=== PATIENT | female | born 1990 | race Caucasian/White ===

== ENCOUNTER 2021-03-31 11:26 | Outpatient (REF) | payer OTHER, SELFPAY ==
--- NOTE | ~2021-03-31 | US_ITS ---
EXAMINATION: US PELVIS CLINICAL INFORMATION: Excessive and irregular menses. Abnormal uterine bleeding. LMP 02/17/2021. COMPARISON: None TECHNIQUE: Ultrasound of the pelvis is performed using both transabdominal and transvaginal transducers along with Doppler. Transvaginal imaging is performed due to inadequate visualization transabdominally. FINDINGS: Uterus: The uterus is anteverted and measures 9.8 x 4.0 x 4.5 cm. There are incidentally noted nabothian cysts in the cervix. The double wall endometrial thickness is 0.5 mm. The uterus is smooth in contour and has normal myometrial echogenicity. No visible fibroid. Adnexa: Both ovaries are visualized. There is normal color flow to the adnexa. There is no ovarian torsion. There is no pelvic ascites or fluid collection. Right ovary measures 3.3 x 2.0 x 1.9 cm. 7 mL volume. No adnexal mass. Left ovary measures 3.3 x 2.1 x 2.4 cm. 8.5 mL volume. There is a dilated fluid-filled tubular structure adjacent the left ovary consistent with a hydrosalpinx. No adnexal mass. US/US pelvic and transvaginal IMPRESSION: Likely left hydrosalpinx. Normal endometrial thickness.
== END 2021-03-31 11:27 | disposition home or self-care (01) ==
LOC: HO.US 11:26
PROVIDERS: Visit Provider Advanced Practice Midwife
DX: N92.1 Excessive and frequent menstruation with irregular cycle (principal)
CPT/HCPCS: 76830; 76856

== ENCOUNTER 2025-04-07 18:22 | Outpatient (REF) | payer OTHER, SELFPAY ==
--- OUTSIDE RECORDS SUMMARY | 2025-04-07 13:00 | XMS_ITS | Encounter Summary ---
Author Organization [employer] Address [address] [place] [address] Care Team Providers Care Agronomy Supervisor Name Role Phone Anny Prado Primary Care Provider [phone] Reason for Referral * Consultation (Routine) - Authorized Specialty Diagnoses / Procedures Referred By Jag tovar Referred To Contact Behavioral Health Diagnoses Depression with anxiety Anny Prado ANP [address] [place] [address] Phone: tel: fax: Referral ID Status Reason Start Date Expiration Date Visits Requested Visits Authorized [id number] Authorized Specialty Services Required 04/07/2025 04/07/2026 1 1 Reason for Visit * Reason Comments Follow-up Encounter Details Date Type Department Care Team (Latest Contact Info) Description 04/07/2025 1:00 PM EDT Office Visit [facility] [address] [place], [place] [phone] Anny Prado ANP [address] [place] [address] Attention deficit hyperactivity disorder (ADHD), unspecified ADHD type (Primary Dx); PCOS (polycystic ovarian syndrome); Class 2 obesity with body mass index (BMI) of 36.0 to 36.9 in adult, unspecified obesity type, unspecified whether serious comorbidity present; Depression with anxiety; Rash; Routine screening for STI (sexually transmitted infection); Homelessness Social History Tobacco Use Types Packs/Day Years Used Date Smoking Tobacco: Never Smokeless Tobacco: Never Tobacco Cessation:Counseling Given: Not Answered Depression Answer Date Recorded Patient Health Questionnaire-9 Score 16 07/18/2024 Patient Health Questionnaire-9 Score 16 07/18/2024 Last PHQ-9: Questionnaire Data Not on file 1 09/18/2023 Housing Stability Answer Date Recorded What is your housing situation today? I do not have housing (Staying with others, in a hotel, in a senior care, living outside on the street, on a beach, in a car, or in a park 04/07/[address] you li ve. Do you have problems with any of the following? Pests such as bugs, ants, or mice 04/07/2025 Food Insecurity Answer Date Recorded Within the past 12 months, y ou worried that your food would run out before you got money to buy more: Often true 04/07/2025 Within the past 12 months,th e food you bought just didn't last and you didn't have enough money to get more: Often true Transportation Answer Date Recorded In the past 12 months, has l ack of transportation kept you from medical appts, meetings, work or from getting things needed for daily living? No 04/07/2025 Utilities Answer Date Recorded In the past 12 months, has t he electric, gas, oil or water company threatened to shut off services in your home? No 05/07/2024 Depression Answer Date Recorded Patient Health Questionnaire-2 Score 6 07/18/2024 Internet Access Answer Date Recorded Internet Access Q1 No 04/07/2025 Internet Access Q2 Not on file 04/07/2025 Comments Unknown Sex and Gender Information Value Date Recorded Sex Assigned at Female 05/22/2022 10:20 AM EDT Legal Sex Female 10:20 AM EDT Gender Identity Female 05/22/2022 10:20 AM EDT Sexual Orientation Straight 05/22/2022 10 :20 AM EDT documented as of this encounter Last Filed Vital Signs Vital Sign Reading Time Taken Comments Blood Pressure 108/68 04/07/2025 1:03 PM EDT Pulse 96 04/07/2025 1:03 PM EDT Temperature 37.1 C (98.7 F) 04/07/2025 1:03 PM EDT Respiratory Rate 20 04/07/2025 1:03 PM EDT Oxygen Saturation - - Inhaled Oxygen Concentration - - Weight 107 kg (236 lb) 04/07/2025 1:03 PM EDT Height 170.2 cm (5' 7 ) 04/07/2025 1:03 PM EDT Body Mass Index 36.96 04/07/2025 1:03 PM EDT documented in this encounter Progress Notes * PETRA Brooks - 04/07/2025 1:00 PM EDT Subjective Patient ID: Jessica Blanco is a 35 y.o. female who presents for Follow-up. HPI PMH anemia, PCOS, h/o seizure d/o (no meds and no recent seizure) Works at [employer]. Non-smoker, occasional etoh. Had miscarriage in January 2025, also found to have PID, +trichomonas, treated as was partner Does not want to be at present BCM condoms Adderall is helping w/ attn and anxiety, depression, feels more calm, able to focus. Now homeless though b/c [employer] she was working at [employer]. Staying in car at BF's mom's house. Is talking to [facility] about this and trying to get connected w/ a high school social science teacher, has difficulty doing the paperwork she needs to d/t develop disability. Would like to re-trial zepbound Had for 1 mo Has lost #30 lb since Jun - suspect this is d/t poor access to food at present. Last pap 2019, pt says gets at [facility] but records in [facility] do not reflect this. Has infertility med note noting pap 2020 NIL, but no actual record of this in pathology or lab results in [facility]. Here today for follow-up/weight check. Tolerated zepbound (tirzepatide) previously, denied side effects. BMI Readings from Last 3 Encounters: 04/07/25 36.96 kg/m?? 12/12/24 41.35 kg/m?? 07/18/24 41.35 kg/m?? Wt Readings from Last 3 Encounters: 04/07/25 236 lb (107 kg) 12/12/24 264 lb (120 kg) 07/18/24 264 lb (120 kg) had improvement in energy and menses regularity with weight loss medication use. Non-smoker Review of Systems Constitutional: Negative for chills and fever. HENT: Negative for sore throat. Respiratory: Negative for cough and shortness of breath. Cardiovascular: Negative for chest pain. Gastrointestinal: Negative for constipation and diarrhea. Endocrine: Negative for polydipsia, polyphagia and polyuria. Genitourinary: Negative for dysuria. Musculoskeletal: Negative for arthralgias. Neurological: Negative for weakness. Psychiatric/Behavioral: Negative for sleep disturbance. The patient is nervous/anxious. Objective BP 108/68 (BP Location: Left arm, Patient Position: Sitting, BP Cuff Size: Large adult) Pulse 96 Temp 98.7 ??F (37.1 ??C) (Oral) Resp 20 Ht 5' 7 (1.702 m) Wt 236 lb (107 kg) BMI 36.96 kg/m?? Physical Exam Constitutional: General: She is not in acute distress. Appearance: Normal appearance. She is not ill-appearing. HENT: Head: Normocephalic and atraumatic. Eyes: General: No scleral icterus. Extraocular Movements: Extraocular movements intact. Pupils: Pupils are equal, round, and reactive to light. Cardiovascular: Rate and Rhythm: Normal rate. Pulmonary: Effort: Pulmonary effort is normal. No accessory muscle usage or respiratory distress. Neurological: Mental Status: She is alert and oriented to person, place, and time. Psychiatric: Mood and Affect: Mood normal. Behavior: Behavior normal. Assessment/Plan Diagnoses and all orders for this visit: Attention deficit hyperactivity disorder (ADHD), unspecified ADHD type Doing well w/ adderall XR 15mg daily PCOS (polycystic ovarian syndrome) Having monthly menses Class 2 obesity with body mass index (BMI) of 36.0 to 36.9 in adult, unspecified obesity type, unspecified whether serious comorbidity present Reviewed GLP1 not recommended w , pt does not want at present, using condoms - Tirzepatide-Weight Management (Zepbound) 2.5 MG/0.5ML solution auto-injector; Inject 0.5 mL (2.5 mg) under the skin 1 (one) time per week. - TSH W/Reflex to FT4; Future Depression with anxiety BH referral to be placed, pt on waiting list but has been on list for at least 1 yr. Rash - triamcinolone (Kenalog) 0.1 % cream; Apply topically 2 times daily. To affected areas Routine screening for STI (sexually transmitted infection) Re-test for STI s/p PID tx 02/01/25 w/ +trich To be scheduled w/ CNM for pap - prefers female provider and we think last pap 2019. - Chlamydia/N. Gonorrhoeae RNA, TMA, Vagina - HIV-1/2 Antigen and Antibodies, Fourth Generation, with Reflexes; Future - Syphilis Screen; Future - Bacterial Vaginosis, Yeast and Trich; Future Homelessness [facility] referral placed Other orders - HPV 9-valent (Gardasil-9) suspension prefilled syringe vaccine prefilled syringe; Inject 0.5 mL into the muscle 1 (one) time for 1 dose. Repeat as directed BMI Readings from Last 3 Encounters: 04/07/25 36.96 kg/m?? 12/12/24 41.35 kg/m?? 07/18/24 41.35 kg/m?? Wt Readings from Last 3 Encounters: 04/07/25 236 lb (107 kg) 12/12/24 264 lb (120 kg) 07/18/24 264 lb (120 kg) documented in this encounter Plan of Treatment Upcoming Encounters Date Type Department Care Team (Late st Contact Info) Description 05/07/2025 2:45 PM EDT Procedure Visit [facility] [address] [place], [place] [phone] Joanne Michele CNM [address] [place] [address] Scheduled Orders Name Type Priority Associated Diagnoses Orde r Schedule Chlamydia/N. Gonorrhoeae RNA, TMA, Vagina Microbiology Routine Routine screening for STI (sexually transmitted infection) Ordered: 04/07/2025 HIV-1/2 Antigen and Antibodies, Fourth Generation, with Reflexes Lab Routine Routine screening for STI (sexually transmitted infection) Expected: 04/07/2025 (Approximate), Expires: 04/07/2026 Syphilis Screen Lab Routine Routine screening for STI (sexually transmitted infection) Expected: 04/07/2025 (Approximate), Expires: 04/07/2026 Bacterial Vaginosis, Yeast and Trich Microbiology Routine Routine screening for STI (sexually transmitted infection) Expected: 04/07/2025 (Approximate), Expires: 04/07/2026 TSH W/Reflex to FT4 Lab Routine Class 2 obesity with body mass index (BMI) of 36.0 to 36.9 in adult, unspecified obesity type, unspecified whether serious comorbidity present Expected: 04/07/2025 (Approximate), Expires: 04/07/2026 Scheduled Referrals Name Type Priority Associated Diagnoses Order Schedule Referral to Behavioral Health Outpatient Referral Routine Depression with anxiety Expected: 04/07/2025 (Approximate), Expires: 10/05/2026 documented as of this encounter Visit Diagnoses Diagnosis Attention deficit hyperactivity disorder (ADHD), unspecified ADHD type- Primary PCOS (polycystic ovarian syndrome) Polycystic ovaries Class 2 obesity with body mass index (BMI) of 36.0 to 36.9 in adult, unspecified obesity type, unspecified whether serious comorbidity present Depression with anxiety Dysthymic disorder Rash Rash and other nonspecific skin eruption Routine screening for STI (sexually transmitted infection) Screening examination for venereal disease Homelessness Lack of housing documented in this encounter Additional Health Concerns Assessment Noted Time PHQ-9 Depression Total Score: 16 07/18/ 024 2:13 PM EST documented as of this encounter Care Teams Agronomy Supervisor Relationship Specialty Start Date End Date Anny Prado ANP [address] [place] [id number] PCP - General Family Medicine 06/03/20 documented as of this encounter
--- OUTSIDE RECORDS SUMMARY | 2025-04-07 19:18 | XMS_ITS | Clinical Summary ---
Author Organization [facility] Address [address] [place] [address] Phone Care Team Providers Care Wellness Coach Name Role Phone Physician, Pcp Unknown Primary Care Provider Michelle vailable Allergies No known active allergies Medications No known medications Active Problems Comments Yes No known active problems Encounters Date Type Department Care Team Description 02/01/2025 12:24 PM EDT - 02/01/2025 5:01 PM EDT Emergency [facility] Emergency [address] [place] [id number] Ramu Mariscal MD Miscarriage (Primary Dx); Pelvic pain; Trichomonal vaginitis; PID (acute pelvic inflammatory disease) Discharge Disposition: Home or Self Care 01/30/2025 4:41 PM EDT - 01/30/2025 6:29 PM EDT Emergency [facility] Emergency [address] [place] [phone] Vaginal bleeding in (Primary Dx) Discharge Disposition: Home or Self Care from Last 3 Months Surgical History Surgery Date Site/Laterality Comments EYE SURGERY Medical History Medical History Date Comments Seizures ([facility] V24, [facility] V28) Anemia Social History Tobacco Use Types Packs/Day Years Used Date Smoking Tobacco: Never Smokeless Tobacco: Never Tobacco Cessation:Counseling Given: Not Answered Alcohol Use Standard Drinks/Week Comments Never 0 (1 standard drink = 0.6 oz pur e alcohol) Comments Yes Sex and Gender Information Value Date Recorded Sex Assigned at Female 06/04/2024 2:08 PM EST Legal Sex Female 4:23 PM EST Gender Identity Female 06/04/2024 2:08 PM EST Sexual Orientation Straight 06/04/2024 2: 08 PM EST Obstetrics History Para Term AB IAB SAB Ectopic Multiple Livin g Live Births 1 Date Outcome GA Total Labor Labor/2nd/3rd Weight Sex Type Anes PTL Kathy A1 A5 Name Clin Current Last Filed Vital Signs Vital Sign Reading Time Taken Comments Blood Pressure 139/96 02/01/2025 12:30 PM EDT Pulse 70 02/01/2025 12:30 PM EDT Temperature 37.4 C (99.3 F) 02/01/2025 12:30 PM EDT Respiratory Rate 16 02/01/2025 12:30 PM EDT Oxygen Saturation 100% 02/01/2025 12:30 PM EDT Inhaled Oxygen Concentration - - Weight 109 kg (240 lb) 02/01/2025 12:30 PM EDT Height 170.2 cm (5' 7 ) 02/01/2025 12:30 PM EDT Body Mass Index 37.59 02/01/2025 12:30 PM EDT Plan of Treatment Health Maintenance Due Date Last Done Comments HPV Vaccines (3 - 3-dose series) 12/14/2010 09/21/2010, 08/22/2010, 09/28/2009 Cervical Cancer Screening: Pap Smear 02/17/2013 Cholesterol Screening (Lipid Panel) 06/21/2022 Hepatitis C Screening 06/21/2022 Medicare Annual Wellness Visit 06/21/2022 Social Influencers of Health Screening 06/21/2022 Depression Screening 07/23/2024 COVID-19 Vaccine ( season) 2025 Influenza Vaccine (#1) 2025 , 05/24/2023, 05/18/2022, Additional history exists DTaP,Tdap,and Td Vaccines (8 - Td or Tdap) 05/24/2033 05/24/2023, 09/22/2011, 07/30/1996, Additional history exists HIB Vaccines Completed 12/14/1993, 09/20, 1992, Additional history exists Hepatitis B Vaccines Completed 12/14/1993, 1992, 1992, Additional history exists IPV Vaccines Completed 08/09/1996, 09/20, 1992, Additional history exists HIV Screening Completed 10/27/2021 Hepatitis A Vaccines Aged Out No long er eligible based on patient's age to complete this topic Meningococcal ACWY Vaccine Aged Out N o longer eligible based on patient's age to complete this topic Meningococcal B Vaccine Aged Out No l onger eligible based on patient's age to complete this topic Pneumococcal Vaccine: Pediatrics (0 to 5 Years) and At-Risk Patients (6 to 49 Years) Aged Out No longer eligible based on patient's age to complete this topic RSV Immunization Patients Under 20 months Aged Out No longer eligible based on patient's age to complete this topic Procedures Procedure Name Priority Date/Time Associated Diagnosis Comments TISSUE EXAM Routine 02/01/2025 3:34 PM EDT CHLAMYDIA TRACHOMATIS AND NEISSERIA GONORRHOEAE PCR STAT 02/01/2025 2:55 PM EDT WET PREP, GENITAL STAT 02/01/2025 2:5 5 PM EDT DRAKE URINE CULTURE TUBE STAT 02/01/2025 2:02 PM EDT URINALYSIS WITH REFLEX MICROSCOPIC AND CULTURE STAT 02/01/2025 2:02 PM EDT URINALYSIS WITH REFLEX MICROSCOPIC AND CULTURE STAT 02/01/2025 2:02 PM EDT CULTURE URINE STAT 02/01/2025 2:02 PM EDT HCG, QUANTITATIVE STAT Add-on 02/01/2025 1:0 1 PM EDT HCG, SERUM, QUALITATIVE STAT 02/01/2025 1:01 PM EDT CBC WITH AUTO DIFFERENTIAL STAT 02/01/2025 1:01 PM EDT LIPASE STAT 02/01/2025 1:01 PM EDT COMPREHENSIVE METABOLIC PANEL STAT 02/01/2025 1:01 PM EDT CBC AND DIFFERENTIAL STAT 02/01/2025 1:01 PM EDT US OB LIMITED 1+ FETUSES STAT 01/30/2025 4:11 PM EDT US OB TRANSVAGINAL STAT 01/30/2025 3: 45 PM EDT HCG, QUANTITATIVE STAT Add-on 01/30/2025 2:0 6 PM EDT CBC WITH AUTO DIFFERENTIAL STAT 01/30/2025 2:06 PM EDT HCG, SERUM, QUALITATIVE STAT 01/30/2025 2:06 PM EDT COMPREHENSIVE METABOLIC PANEL STAT 01/30/2025 2:06 PM EDT CBC AND DIFFERENTIAL STAT 01/30/2025 2:06 PM EDT DRAKE URINE CULTURE TUBE STAT 01/30/2025 2:00 PM EDT URINALYSIS WITH REFLEX MICROSCOPIC AND CULTURE STAT 01/30/2025 2:00 PM EDT URINALYSIS WITH REFLEX MICROSCOPIC AND CULTURE STAT 01/30/2025 2:00 PM EDT CULTURE URINE STAT 01/30/2025 2:00 PM EDT POC , URINE DIAGNOSTIC STAT 01/30/2025 1:59 PM EDT from Last 3 Months Results * Tissue exam (02/01/2025 3:34 PM EDT) Final Diagnosis Products of conception: Inflamed decidua No villous, trophoblastic, or embryonic tissue identified 02/03/2025 7:52 AM EDT [facility] Clinical Information Gestational age on date of collection: 3-4 weeks determined by LMP (01/02/2025) Cytogenetic study 02/03/2025 7:52 AM EDT [facility] Gross Description A. Uterus, POC: Labeled uterus . Received fresh, and blood-tinged saline, is a 1.0 x 0.4 x 0.15 cm aggregate of blood/blood clot which contains a soft, preciado-red 0.3 cm in greatest diameter possible tissue fragment. Chorionic villi and parts are absent. The specimen is wrapped in paper and submitted in toto in one cassette, multiple pieces. Note: No tissue is sent for cytogenetics, as no villi are apparent grossly. TS 02/03/2025 7:52 AM EDT [facility] Disclaimer Unless otherwise specified, all tissue is 10% NB formalin fixed and paraffin embedded. 02/03/2025 7:52 AM EDT [facility] Tissue Uterine structure / Unknown Non-blood Collection / Unknown 02/01/2025 3:34 PM EDT 02/02/2025 7:41 AM EDT Miguel Angel MARTINEZ LAB PATHOLOGY ORDERAB LES Final Result [facility] [address] [place] [address], [place] [phone] * (ABNORMAL) Chlamydia trachomatis and Neisseria gonorrhoeae molecular study (02/01/2025 2:55 PM EDT) Neisseria gonorrhoeae PCR Negative Negative LAB MOLECULAR DIAGNOSTICS METHOD 02/03/2025 9:58 AM EDT [facility] Chlamydia trachomatis PCR Positive(A) Negative LAB MOLECULAR DIAGNOSTICS METHOD 02/03/2025 9:58 AM EDT [facility] Swab Cervix uteri structure / Unknown Non-blood Collection / Unknown 02/01/2025 2:55 PM EDT 02/01/2025 3:27 PM EDT us Miguel Angel MARTINEZ LAB MICROBIOLOGY - GE NERAL ORDERABLES Final Result [facility] [address] [place] [address], [place] [phone] * (ABNORMAL) Wet prep, genital (02/01/2025 2:55 PM EDT) Pathologist [facility] Clue Cells, Wet Prep Negative Negative 02/01/2025 3:40 PM EDT [facility] Yeast, Wet Prep Negative Negative 02/01/2025 3:40 PM EDT [facility] Trichomonas, Wet Prep Positive(A) Negative 02/01/2025 3:40 PM EDT [facility] Swab Vaginal structure / Unknown Non-blood Collection / Unknown 02/01/2025 2:55 PM EDT 02/01/2025 3:27 PM EDT Miguel Angel Van [place] LAB MICROBIOLOGY - NERAL ORDERABLES Final Result [facility] [address] [place] [address], [place] [phone] * (ABNORMAL) Urinalysis with reflex microscopic and culture (02/01/2025 2:02 PM EDT) Only the most recent of2 resultswithin the time period is included. [facility] Specific [place] Urine 1.029 1.003 - 1.030 LAB URINALYSIS - AUTOMATED METHOD 02/01/2025 2:59 PM EDT [facility] pH, Urine 5.5 5.0 - 8.0 pH LAB URINALYSIS - AUTOMATED METHOD 02/01/2025 2:59 PM EDT [facility] Leukocytes, Urine Moderate(A) Negative LAB URINALYSIS - AUTOMATED METHOD 02/01/2025 2:59 PM EDT [facility] Nitrite, Urine Negative Negative LAB URINALYSIS - AUTOMATED METHOD 02/01/2025 2:59 PM EDT [facility] Protein, Urine 100(A) <=Trace mg/dL LAB URINALYSIS - AUTOMATED METHOD 02/01/2025 2:59 PM [facility] Glucose, Urine Negative Negative mg/dL LAB URINALYSIS - AUTOMATED METHOD 02/01/2025 2:59 PM [facility] Ketones, Urine Trace(A) Negative mg/dL LAB URINALYSIS - AUTOMATED METHOD 02/01/2025 2:59 PM [facility] Urobilinogen , Urine 1.0 0.2 - 1.0 mg/dL LAB URINALYSIS - AUTOMATED METHOD 02/01/2025 2:59 PM [facility] Bilirubin, Urine Negative Negative LAB URINALYSIS - AUTOMATED METHOD 02/01/2025 2:59 PM [facility] Blood, Urine Large(A) Negative LAB URINALYSIS - AUTOMATED METHOD 02/01/2025 2:59 PM [facility] RBC, Urine >4,000(H) 0 - 4 /HPF LAB URINALYSIS - AUTOMATED METHOD 02/01/2025 2:59 PM [facility] WBC, Urine 118.6(H) 0 - 4 /HPF LAB URINALYSIS - AUTOMATED METHOD 02/01/2025 2:59 PM [facility] Squamous Epithelial, Urine >100(H) 0 - 60 /LPF LAB URINALYSIS - AUTOMATED METHOD 02/01/2025 2:59 PM [facility] Bacteria, Urine Negative Negative /HPF LAB URINALYSIS - AUTOMATED METHOD 02/01/2025 2:59 PM [facility] Hyaline Casts, Urine 3.0 0 - 3 /LPF LAB URINALYSIS - AUTOMATED METHOD 02/01/2025 2:59 PM [facility] Trichomonas, Urine Present(A) None Seen /HPF LAB URINALYSIS - AUTOMATED METHOD 02/01/2025 2:59 PM [facility] Urine Urine specimen obtained by clean catch procedure / Unknown Non-blood Collection / Unknown 02/01/2025 2:02 PM EDT 02/01/2025 2:19 PM EDT [facility] URINE ORDERABLES Final Result Performing Organization Address City/[facility]/ZIP Co de Phone Number [facility] [address] [place] [address], [place] [phone] * Drake urine culture tube (02/01/2025 2:02 PM EDT) Only the most recent of2 resultswithin the time period is included. Extra Tube Hold for add-ons. 02/01/2025 4:01 PM EDT [facility] Comment:Auto resulted. Urine Urine specimen obtained by clean catch procedure / Unknown Non-blood Collection / Unknown 02/01/2025 2:02 PM EDT 02/01/2025 2:19 PM EDT [facility] URINE ORDERABLES Final Result Performing Organization Address [facility] de Phone Number [facility] [address] [place] [address], [place] [phone] * Culture urine (02/01/2025 2:02 PM EDT) Only the most recent of2 resultswithin the time period is included. Culture, Urine 50,000-99,000 CFU/mL Mixed urogenital naday, no uropathogens present. Suggest repeat specimen if clinically indicated. 02/02/2025 11:01 AM EDT [facility] Urine Urine specimen obtained by clean catch procedure / Unknown Non-blood Collection / Unknown 02/01/2025 2:02 PM EDT 02/01/2025 2:59 PM EDT [facility] LAB MICROBIOLOGY - GE NERAL ORDERABLES Final Result Performing Organization Address City/[facility]/ZIP Co de Phone Number [facility] [address] [place] [address], * (ABNORMAL) CBC auto differential (02/01/2025 1:01 PM EDT) Only the most recent of2 resultswithin the time period is included. [facility] Signature WBC 7.7 4.8 - 10.8 K/mcL LAB HEMETOLOGY METHOD 02/01/2025 1:18 PM EDT [facility] RBC 5.00(H) 3.80 - 4.80 M/mcL LAB HEMETOLOGY METHOD 02/01/2025 1:18 PM EDT [facility] Hemoglobin 12.0 11.5 - 16.0 g/dL LAB HEMETOLOGY METHOD 02/01/2025 1:18 PM EDT [facility] Hematocrit 38.1 35.0 - 47.0 % LAB HEMETOLOGY METHOD 02/01/2025 1:18 PM EDT [facility] MCV 77.0(L) 79.0 - 98.0 FL LAB HEMETOLOGY METHOD 02/01/2025 1:18 PM EDT [facility] MCH 24.2(L) 27.0 - 32.0 pcg LAB HEMETOLOGY METHOD 02/01/2025 1:18 PM EDT [facility] MCHC 31.5(L) 32.0 - 37.0 g/dL LAB HEMETOLOGY METHOD 02/01/2025 1:18 PM EDT [facility] RDW 15.8(H) 11.0 - 15.0 % LAB HEMETOLOGY METHOD 02/01/2025 1:18 PM EDT [facility] Platelets 348 130 - 400 K/mcL LAB HEMETOLOGY METHOD 02/01/2025 1:18 PM EDT [facility] MPV 11.1(H) 7.0 - 11.0 FL LAB HEMETOLOGY METHOD 02/01/2025 1:18 PM EDT [facility] NRBC 0.0 <1.0 % LAB HEMETOLOGY METHOD 02/01/2025 1:18 PM EDT [facility] NRBC Absolute 0.00 <0.10 K/mcL LAB HEMETOLOGY METHOD [facility]25 [facility] Neutrophils Relative 73.2 % LAB HEMETOLOGY METHOD 02/01/2025 1:18 PM EDT [facility] Lymphocytes Relative 17.8 % LAB HEMETOLOGY METHOD 02/01/2025 1:18 PM EDT [facility] Monocytes Relative 6.4 % LAB HEMETOLOGY METHOD 02/01/2025 1:18 PM [facility] Eosinophils Relative 1.8 % LAB HEMETOLOGY METHOD 02/01/2025 1:18 PM [facility] Basophils Relative 0.5 % LAB HEMETOLOGY METHOD 02/01/2025 1:18 PM [facility] Immature Granulocytes Relative 0.3 % LAB HEMETOLOGY METHOD 02/01/2025 1:18 PM [facility] Neutrophils Absolute 5.63 1.50 - 7.00 K/mcL LAB HEMETOLOGY METHOD 02/01[facility]2025 [facility] Lymphocytes Absolute 1.37 1.00 - 5.00 K/mcL LAB HEMETOLOGY METHOD 02/01/2025 1:18 PM EDT [facility] Monocytes Absolute 0.49 0.20 - 1.00 K/mcL LAB HEMETOLOGY METHOD 02/01/2025 [facility] Eosinophils Absolute 0.14 0.00 - 0.50 K/mcL LAB HEMETOLOGY METHOD 02/01/2025 1:[facility] Basophils Absolute 0.04 0.00 - 0.20 K/mcL LAB HEMETOLOGY METHOD 02/01/2025 1:18 PM EDT [facility] Immature Granulocytes Absolute 0.02 0.00 - 0.03 K/mcL LAB HEMETOLOGY METHOD 02/01/2025 1:18 PM EDT [facility] Blood Venous blood specimen / Unknown Venipuncture / Unknown 02/01/2025 1:01 PM EDT 02/01/2025 1:09 PM EDT Ramu Mariscal MD LAB BLOOD ORDERABLES Final Resu lt [facility] [address] [place] [address], [place] [phone] * hCG, serum, qualitative (02/01/2025 1:01 PM EDT) Only the most recent of2 resultswithin the time period is included. hCG Qual Negative Negative 02/01/2025 1:30 PM EDT [facility] Blood Venous blood specimen / Unknown Venipuncture / Unknown 02/01/2025 1:01 PM EDT 02/01/2025 1:09 PM EDT Bob Tinsley MD LAB BLOOD ORDERABLES Final Result Performing Organization Address City/[facility]/ZIP Co de Phone Number [facility] [address] [place] [address], [place] [phone] * HCG, quantitative (02/01/2025 1:01 PM EDT) Only the most recent of2 resultswithin the time period is included. hCG Quant 4 mIU/mL LAB CHEMISTRY METHOD 02/01/2025 2:11 PM EDT [facility] Blood Venous blood specimen / Unknown Venipuncture / Unknown 02/01/2025 1:01 PM EDT 02/01/2025 1:09 PM EDT Narrative [facility] - 02/01/2025 2:11 PM EDT Quantitative HCG Reference Ranges Time after Conception MIU/ML 0.2-1 Week 5-50 1-2 Weeks 50-500 2-3 Weeks 100-5,000 3-4 Weeks 500-10,000 4-5 Weeks 1,000-50,000 5-6 Weeks 10,000-100,000 6-8 Weeks 15,000-200,000 2-3 Months 10,000-100,000 2nd Trimester 1,000-94,000 3rd Trimester 2,500-90,000 Non- Females 1-3 Miguel Angel MARTINEZ LAB BLOOD ORDERABLES Final Result Performing Organization Address [place]/[facility]/ZIP Co de Phone Number [facility] [address] [place] [address], * Lipase (02/01/2025 1:01 PM EDT) Pathologist [facility] Lipase 39 13 - 75 unit/L LAB CHEMISTRY METHOD 02/01/2025 1:33 PM EDT [facility] Blood Venous blood specimen / Unknown Venipuncture / Unknown 02/01/2025 1:01 PM EDT 02/01/2025 1:09 PM EDT Ramu Mariscal MD LAB BLOOD ORDERABLES Final Resu lt Performing Organization Address [place]/[facility]/ZIP Co de Phone Number [facility] [address] [place] [address], [place] [phone] * (ABNORMAL) Comprehensive metabolic panel (02/01/2025 1:01 PM EDT) Only the most recent of2 resultswithin the time period is included. Sodium 140 133 - 145 mmol/L LAB CHEMISTRY METHOD 02/01/2025 1:33 PM [facility] Potassium 4.1 3.5 - 5.5 mmol/L LAB CHEMISTRY METHOD 02/01/2025 1:33 PM [facility] Chloride 111(H) 96 - 110 mmol/L LAB CHEMISTRY METHOD 02/01/2025 1:33 PM [facility] CO2 25 21 - 32 mmol/L LAB CHEMISTRY METHOD 02/01/2025 1:33 PM [facility] Anion Gap 4 3 - 11 LAB CHEMISTRY METHOD 02/01/2025 1:33 PM [facility] Glucose 97 70 - 100 mg/dL LAB CHEMISTRY METHOD 02/01/2025 1:33 PM [facility] BUN 9 5 - 25 mg/dL LAB CHEMISTRY METHOD 02/01/2025 1:33 PM [facility] Creatinine 0.79 0.50 - 1.10 mg/dL LAB CHEMISTRY METHOD 02/01/2025 1:33 PM [facility] eGFR 102 >=60 mL/min/1. 73m2 LAB CHEMISTRY METHOD 02/01/2025 1:33 PM [facility] Comment:Calculation based on the Chronic Kidney Disease Epidemiology Collaboration (CKD-EPI) equation refit without adjustment for race. BUN/Creatinine Ratio 11.4 LAB CHEMISTRY METHOD 02/01/2025 1:33 PM [facility] Calcium 8.7 8.5 - 10.5 mg/dL LAB CHEMISTRY METHOD 02/01/2025 1:33 PM [facility] AST (SGOT) 42 10 - 42 unit/L LAB CHEMISTRY METHOD 02/01/2025 1:33 PM [facility] ALT (SGPT) 49 10 - 60 unit/L LAB CHEMISTRY METHOD 02/01/2025 1:33 PM [facility] Alkaline Phosphatase 103 42 - 121 unit/L LAB CHEMISTRY METHOD 02/01/2025 1:33 PM EDT [facility] Total Protein 7.3 6.0 - 8.0 g/dL LAB CHEMISTRY METHOD 02/01/2025 1:33 PM EDT [facility] Albumin 3.7 3.2 - 5.0 g/dL LAB CHEMISTRY METHOD 02/01/2025 1:33 PM EDT [facility] Total Bilirubin 0.4 0.0 - 1.4 mg/dL LAB CHEMISTRY METHOD 02/01/2025 1:33 PM EDT [facility] Blood Venous blood specimen / Unknown Venipuncture / Unknown 02/01/2025 1:01 PM EDT 02/01/2025 1:09 PM EDT us Ramu Mariscal MD LAB BLOOD ORDERABLES Final Resu lt [facility] [address] [place] [address], [place] [phone] * US OB Limited 1+ Fetuses (01/30/2025 4:11 PM EDT) Anatomical Region Laterality Modality Body Ultrasound Impressions 01/30/2025 4:57 PM EDT Thickened slightly heterogeneous nonspecific endometrium. There is no gestational sac, pole or cardiac activity. Ectopic is not excluded, however, this could be related to early gestational age insufficient to identify by ultrasound Since no definite intrauterine gestation is demonstrated this qualifies as a of unknown location (PUL) and should be managed based upon the history and physical exam. Consider short interval follow-up ultrasound and serial quantitative beta-hCG. -------- FINAL REPORT -------- Dictated By: Micheal Madrigal Dictated Date: 01/30/2025 16:50 ET Assigned Physician: Micheal Madrigal Reviewed and Electronically Signed By: Micheal Madrigal Signed Date: 01/30/2025 16:57 ET Workstation ID: [id number] Transcribed By: Self Edit Transcribed Date: 01/30/2025 16:50 ET Narrative 01/30/2025 4:57 PM EDT EXAM: EARLY OBSTETRIC ULTRASOUND CLINICAL INFORMATION: Vaginal bleeding. Clinical concern for ectopic . Reportedly positive test. TECHNIQUE: Transcutaneous pelvic ultrasound. Transvaginal scanning was performed following voiding to better evaluate the uterine contents and adnexa. Color mapping was performed. Doppler spectral analysis was performed. Comparison: No prior studies are available for comparison. FINDINGS: Quality: Adequate Expected region of vagina: No suspicious abnormality. Cervix: The estimated cervical length is 3.2 cm. No suspicious abnormality. Uterine position: Anteverted Uterine size: The uterus measures approximately 10.0 x 6.3 x 6.7 cm. Endometrium: The endometrium is prominent. The endometrium measures approximately 3 cm. Intrauterine contents: There is mild heterogeneity of the endometrium which is thickened. There is no discrete gestational sac. There is no pole. There is no yolk sac. There is no cardiac activity. Placenta: No placenta demonstrated. Yolk sac: Not demonstrated pole: Not demonstrated cardiac activity: Not demonstrated Biometrics: Gestational sac size: Not applicable Yolk sac size: Not applicable [place]-rump length: Not applicable cardiac rate: Not applicable The best estimated gestational age: Cannot be determined from the ultrasound The estimated gestational age based upon the aggregate sonographic measurements: The patient is unsure of menstrual dating EDC: Not applicable somatic activity documented: Not applicable Myometrium: No focal abnormality. Uterine contour: Smooth Right ovary: The right ovary measures approximately 2.7 x 2.2 x 1.9 cm. There are some small hypoechoic areas which may represent cysts. There is no abnormality to suggest the presence of an ectopic in the adnexa. Color signal present. Vascular Doppler spectra obtained. Left ovary: The left ovary measures approximately 2.9 x 1.9 x 2.4 cm. No suspicious left adnexal abnormality. Small likely physiologic cysts. Color signal present. Doppler vascular spectra obtained. Free fluid: None. us Bbo Tinsley MD IMG OB US PROCEDURES Edited Result - Final * US OB Transvaginal (01/30/2025 3:45 PM EDT) Anatomical Region Laterality Modality Body Ultrasound 01/30/2025 4:50 PM EDT Impressions 01/30/2025 4:57 PM EDT Thickened slightly heterogeneous nonspecific endometrium. There is no gestational sac, pole or cardiac activity. Ectopic is not excluded, however, this could be related to early gestational age insufficient to identify by ultrasound Since no definite intrauterine gestation is demonstrated this qualifies as a of unknown location (PUL) and should be managed based upon the history and physical exam. Consider short interval follow-up ultrasound and serial quantitative beta-hCG. -------- FINAL REPORT -------- Dictated By: Micheal Madrigal Dictated Date: 01/30/2025 16:50 ET Assigned Physician: Micheal Madrigal Reviewed and Electronically Signed By: Micheal Madrigal Signed Date: 01/30/2025 16:57 ET Workstation ID: [id number] Transcribed By: Self Edit Transcribed Date: 01/30/2025 16:50 ET Narrative 01/30/2025 4:57 PM EDT EXAM: EARLY OBSTETRIC ULTRASOUND CLINICAL INFORMATION: Vaginal bleeding. Clinical concern for ectopic . Reportedly positive test. TECHNIQUE: Transcutaneous pelvic ultrasound. Transvaginal scanning was performed following voiding to better evaluate the uterine contents and adnexa. Color mapping was performed. Doppler spectral analysis was performed. Comparison: No prior studies are available for comparison. FINDINGS: Quality: Adequate Expected region of vagina: No suspicious abnormality. Cervix: The estimated cervical length is 3.2 cm. No suspicious abnormality. Uterine position: Anteverted Uterine size: The uterus measures approximately 10.0 x 6.3 x 6.7 cm. Endometrium: The endometrium is prominent. The endometrium measures approximately 3 cm. Intrauterine contents: There is mild heterogeneity of the endometrium which is thickened. There is no discrete gestational sac. There is no pole. There is no yolk sac. There is no cardiac activity. Placenta: No placenta demonstrated. Yolk sac: Not demonstrated pole: Not demonstrated cardiac activity: Not demonstrated Biometrics: Gestational sac size: Not applicable Yolk sac size: Not applicable [place]-rump length: Not applicable cardiac rate: Not applicable The best estimated gestational age: Cannot be determined from the ultrasound The estimated gestational age based upon the aggregate sonographic measurements: The patient is unsure of menstrual dating EDC: Not applicable somatic activity documented: Not applicable Myometrium: No focal abnormality. Uterine contour: Smooth Right ovary: The right ovary measures approximately 2.7 x 2.2 x 1.9 cm. There are some small hypoechoic areas which may represent cysts. There is no abnormality to suggest the presence of an ectopic in the adnexa. Color signal present. Vascular Doppler spectra obtained. Left ovary: The left ovary measures approximately 2.9 x 1.9 x 2.4 cm. No suspicious left adnexal abnormality. Small likely physiologic cysts. Color signal present. Doppler vascular spectra obtained. Free fluid: None. Procedure Note Micheal Madrigal MD - 01/30/2025 EXAM: EARLY OBSTETRIC ULTRASOUND CLINICAL INFORMATION: Vaginal bleeding. Clinical concern for ectopicpregnancy. Reportedly positive test. TECHNIQUE: Transcutaneous pelvic ultrasound. Transvaginal scanning was performed following voiding to better evaluatethe uterine contents and adnexa. Color mapping was performed. Doppler spectral analysis was performed. Comparison: No prior studies are available for comparison. FINDINGS: Quality: Adequate Expected region of vagina: No suspicious abnormality. Cervix: The estimated cervical length is 3.2 cm. No suspiciousabnormality. Uterine position: Anteverted Uterine size: The uterus measures approximately 10.0 x 6.3 x 6.7 cm. Endometrium: The endometrium is prominent. The endometrium measuresapproximately 3 cm. Intrauterine contents: There is mild heterogeneity of the endometriumwhich is thickened. There is no discrete gestational sac. There is nofetal pole. There is no yolk sac. There is no cardiac activity. Placenta: No placenta demonstrated. Yolk sac: Not demonstrated pole: Not demonstrated cardiac activity: Not demonstrated Biometrics: Gestational sac size: Not applicable Yolk sac size: Not applicable [place]-rump length: Not applicable cardiac rate: Not applicable The best estimated gestational age: Cannot be determined from theultrasound The estimated gestational age based upon the aggregate sonographicmeasurements: The patient is unsure of menstrual dating EDC: Not applicable somatic activity documented: Not applicable Myometrium: No focal abnormality. Uterine contour: Smooth Right ovary: The right ovary measures approximately 2.7 x 2.2 x 1.9 cm.There are some small hypoechoic areas which may represent cysts. There isno abnormality to suggest the presence of an ectopic in theadnexa. Color signal present. Vascular Doppler spectra obtained. Left ovary: The left ovary measures approximately 2.9 x 1.9 x 2.4 cm. Nosuspicious left adnexal abnormality. Small likely physiologic cysts. Color signal present. Doppler vascular spectra obtained. Free fluid: None. IMPRESSION: Thickened slightly heterogeneous nonspecific endometrium. There is no gestational sac, pole or cardiac activity. Ectopic is not excluded, however, this could be related to earlygestational age insufficient to identify by ultrasound Since no definite intrauterine gestation is demonstrated this qualifies asa of unknown location (PUL) and should be managed based upon thehistory and physical exam. Consider short interval follow-up ultrasound and serial quantitativebeta-hCG. -------- FINAL REPORT -------- Dictated By: Micheal Madrigal Dictated Date: 01/30/2025 16:50 ET Assigned Physician: Micheal Madrigal Reviewed and Electronically Signed By: Micheal Madrigal Signed Date: 01/30/2025 16:57 ET Workstation ID: [id number] Transcribed By: Self Edit Transcribed Date: 01/30/2025 16:50 ET us Bob Tinsley MD IMG OB US PROCEDURES Final Result * POC , urine manually resulted (01/30/2025 1:59 PM EDT) HCG, Ur POC Negative Negative POC hCG Int QC Pass? Yes Yes Urine Urine specimen obtained by clean catch procedure / Unknown 01/30/2025 1:59 PM EDT Bob Tinsley MD POINT OF CARE TEST ENTER/ED IT ORDERABLES Final Result from Last 3 Months Insurance MEDICARE Member Subscriber Plan / Payer (Ef fective 2017-Present) Name:ARMIDA BUSH Relation to Subscriber:Self Name:Jessica Meza Payer ID:[id number] Group ID:[id number] Type:Not on file Address: [address] [place] [address] Care Teams Wellness Coach Relationship Specialty Start Date End Date Physician, Pcp Unknown PCP - General 06/04/24
--- OUTSIDE RECORDS SUMMARY | 2025-04-07 19:18 | XMS_ITS | Encounter Summary ---
Author Organization [employer] Address [address] [facility] [address] [place] [address] Care Team Providers Care Harness Mender Name Role Phone Anny Prado Primary Care Provider [phone] Reason for Visit * Reason Comments Care Coordination CHW outreach for SDO H housing search-referral completed Encounter Details Date Type Department Care Team (Latest Contact Info) Description 04/07/2025 Patient Outreach [facility] [address] [place], [place] [phone] Anny Prado ANP [address] [place] [address] Care Coordination (CHW outreach for SDOH housing search-referral completed ) Social History Tobacco Use Types Packs/Day Years Used Date Smoking Tobacco: Never Smokeless Tobacco: Never Depression Answer Date Recorded Patient Health Questionnaire-9 Score 16 07/18/2024 Patient Health Questionnaire-9 Score 16 07/18/2024 Last PHQ-9: Questionnaire Data Not on file 1 09/18/2023 Housing Stability Answer Date Recorded What is your housing situation today? I do not have housing (Staying with others, in a hotel, in a senior living, living outside on the street, on a [...] AM EDT documented as of this encounter Progress Notes * Richy Banuelos - 04/07/2025 2:09 PM EDT CHW Richy Banuelos, placed outbound call to patient for assistance with SDOH as a referral was received by the provider. Patient's name and were confirmed. Patient screened positive for the following SDVA housing insecurities. Patient states is staying with her friend but is searching for her own apartment. CHW referral patient to the list of application mail out to her address on file. Patient verbalizes understanding, and able to agree with plan to follow up herself. Patient educated on extended clinic hours on Mondays through Wednesdays, and Walk-In Urgent Care Located in [facility]. Patient provided with after-hours line for [facility], , which offer night time triage service and option to transfer to ammunition assembly i laborer provider if needed. documented in this encounter Plan of Treatment Upcoming Encounters Date Type Department Care Team (Late st Contact Info) Description 05/07/2025 2:45 PM EDT Procedure Visit [facility] [address] [place] [address] Joanne Michele CNM [address] [place] [address] documented as of this encounter Visit Diagnoses Not on filedocumented in this encounter Additional Health Concerns Assessment Noted Time PHQ-9 Depression Total Score: 16 024 2:13 PM EST documented as of this encounter Care Teams Harness Mender Relationship Specialty Start Date End Date Anny Prado ANP [address] [place] [address] PCP - General Family Medicine 06/03/20 documented as of this encounter
--- OUTSIDE RECORDS SUMMARY | 2025-04-07 19:19 | XMS_ITS | Encounter Summary ---
Author Organization [employer] Address [address] [facility] [address] [place] [address] Care Team Providers Care Collator Name Role Phone Anny Prado Primary Care Provider [phone] Reason for Visit * Reason Onset Date Comments Referral 03/20/2025 Encounter Details Date Type Department Care Team (Late st Contact Info) Description 03/20/2025 Telephone [facility] MED[facility]INE [address] [place], [place] [phone] Anny Prado ANP [address] [place] [address] Referral Social History Tobacco Use Types Packs/Day Years Used Date Smoking Tobacco: Never Smokeless Tobacco: Never Depression Answer Date Recorded Patient Health Questionnaire-9 Score 16 07/18/2024 Patient Health Questionnaire-9 Score 16 07/18/2024 Last PHQ-9: Questionnaire Data Not on file 1 09/18/2023 Housing Stability Answer Date Recorded What is your housing situation today? I have donald wu 05/07/[address] you li ve. Do you have problems with any of the following? Pests such as bugs, ants, or mice 05/07/2024 Food Insecurity Answer Date Recorded Within the past 12 months, y ou worried that your food would run out before you got money to buy more: Sometimes True 2023 Within the past 12 months,th e food you bought just didn't last and you didn't have enough money to get more: Sometimes True 05/07/2024 Transportation Answer Date Recorded In the past 12 months, has l ack of transportation kept you from medical appts, meetings, work or from getting things needed for daily living? Yes, it has kept me from medical appointments or getting medications. 05/07/2024 Utilities Answer Date Recorded In the past 12 months, has t he electric, gas, oil or water company threatened to shut off services in your home? No 05/07/2024 Depression Answer Date Recorded Patient Health Questionnaire-2 Score 6 07/18/2024 Internet Access Answer Date Recorded Internet Access Q1 Yes 05/07/2024 Internet Access Q2 Not on file 05/07/2024 Comments Unknown Sex and Gender Information Value Date Recorded Sex Assigned at Female 05/22/2022 10:20 AM EDT Legal Sex Female 10:20 AM EDT Gender Identity Female 05/22/2022 10:20 AM EDT Sexual Orientation Straight 05/22/2022 10 :20 AM EDT documented as of this encounter Miscellaneous Notes * Telephone Encounter - Eboni [place] - 03/20/2025 12:48 PM EDT Tc from pt requesting a referral to [facility] for a therapist Contact pt at [phone] documented in this encounter Plan of Treatment Upcoming Encounters Date Type Department Care Team (Late st Contact Info) Description 05/07/2025 2:45 PM EDT Procedure Visit [facility] [address] [place] [address] Joanne Michele CNM [address] [place] [address] documented as of this encounter Visit Diagnoses Not on filedocumented in this encounter Additional Health Concerns Assessment Noted Time PHQ-9 Depression Total Score: 16 024 2:13 PM EST documented as of this encounter Care Teams Collator Relationship Specialty Start Date End Date Anny Prado ANP [address] [place] [address] PCP - General Family Medicine 06/03/20 documented as of this encounter
--- OUTSIDE RECORDS SUMMARY | 2025-04-07 19:19 | XMS_ITS | Encounter Summary ---
Author Organization [employer] Address [address] [facility] [address] [place] [address] Care Team Providers Care Police Patrol Lieutenant Name Role Phone Anny Prado Primary Care Provider [phone] Encounter Details Date Type Department Care Team (Latest Contact Info) Description 04/07/2025 Travel Social History Tobacco Use Types Packs/Day Years [...] AM EDT documented as of this encounter Plan of Treatment Upcoming Encounters Date Type Department Care Team (Late st Contact Info) Description 05/07/2025 2:45 PM EDT Procedure Visit [facility] [address] [place] [address] Joanne Michele CNM [address] [place] [address] documented as of this encounter Visit Diagnoses Not on filedocumented in this encounter Additional Health Concerns Assessment Noted Time PHQ-9 Depression Total Score: 16 024 2:13 PM EST documented as of this encounter Care Teams Police Patrol Lieutenant Relationship Specialty Start Date End Date Anny Prado ANP [address] [place] [address] PCP - General Family Medicine 06/03/20 documented as of this encounter
--- OUTSIDE RECORDS SUMMARY | 2025-04-07 19:19 | XMS_ITS | Encounter Summary ---
Author Organization [employer] Address [address] [facility] [address] [place] [address] Care Team Providers Care Chemist Helper Name Role Phone Anny Prado Primary Care Provider [phone] Reason for Visit * Reason Onset Date Comments Nurse Triage 03/11/2024 Encounter Details Date Type Department Care Team (Late st Contact Info) Description 03/11/2024 Telephone [facility]INE [address] [place], [place] [phone] Anny Prado ANP [address] [place] [address] Nurse Triage Social History Tobacco Use Types Packs/Day Years Used Date Smoking Tobacco: Never Smokeless Tobacco: Never Depression Answer Date Recorded Patient Health Questionnaire-9 Score 18 02/05/2023 Housing Stability Answer Date Recorded What is your housing situation today? I have donald wu 05/08/[address] you li ve. Do you have problems with any of the following? None of the above 05/08/2023 Food Insecurity Answer Date Recorded Within the past 12 months, y ou worried that your food would run out before you got money to buy more: Often true 05/08/2023 Within the past 12 months,th e food you bought just didn't last and you didn't have enough money to get more: Often true Transportation Answer Date Recorded In the past 12 months, has l ack of transportation kept you from medical appts, meetings, work or from getting things needed for daily living? Yes, it has kept me from medical appointments or getting medications. 05/01/2023 Utilities Answer Date Recorded In the past 12 months, has t he electric, gas, oil or water company threatened to shut off services in your home? Yes 05/01/2023 Depression Answer Date Recorded Patient Health Questionnaire-2 Score 6 02/05/2023 Comments Unknown Sex and Gender Information Value Date Recorded Sex Assigned at Female 05/22/2022 10:20 AM EDT Legal Sex Female 10:20 AM EDT Gender Identity Female 05/22/2022 10:20 AM EDT Sexual Orientation Straight 05/22/2022 10 :20 AM EDT documented as of this encounter Miscellaneous Notes * Telephone Encounter - Alexandra Collins RN - 03/11/2024 9:30 AM EDT Triage call Pt reports vaginal bleeding for the whole month of February at this time. Pt reports usually has monthly period or every 2 months but, this month vaginal bleeding started , stopped for 2 days and then started again. Pt reports using up to 20 pads per day. Pt reports having some nausea, constipation, abdominal cramping and discomfort. Pt has not done test but, is a possibility, due to vaginal bleeding Pt decided not to test. ASK apt with PCP Eve at 330pm 03/17/24. Pt agrees with disposition. Insurance is verified as active prior to booking. Protocol Used: Vaginal Bleeding - Abnormal (Adult) Protocol-Based Disposition: See in Office or Video Visit within 2 Weeks Positive Triage Questions: * Periods with > 6 soaked pads or tampons per day * Periods last > 7 days * All higher-acuity triage questions were negative Care Advice Discussed: * Reasons To Call Back - Severe abdomen pain or lightheadedness occurs - test is positive - Bleeding worsens - Bleeding or spotting lasts over 7 days - You become worse * Telephone Encounter - Haleigh Smith - 03/11/2024 8:51 AM EDT Symptom: Vaginal Bleeding - Not Outcome: Schedule an urgent appointment (within 4 hours) or talk to a nurse or provider soon Reason: Getting worse The caller accepted this outcome documented in this encounter Plan of Treatment Upcoming Encounters Date Type Department Care Team (Late st Contact Info) Description 05/07/2025 2:45 PM EDT Procedure Visit [facility] [address] [place] [address] Joanne Michele CNM [address] [place] [address] documented as of this encounter Visit Diagnoses Not on filedocumented in this encounter Additional Health Concerns Assessment Noted Time PHQ-9 Depression Total Score: 18 023 11:43 AM EDT documented as of this encounter Care Teams Chemist Helper Relationship Specialty Start Date End Date Anny Prado ANP [address] [place] [address] PCP - General Family Medicine 06/03/20 documented as of this encounter
--- OUTSIDE RECORDS SUMMARY | 2025-04-07 19:19 | XMS_ITS | Encounter Summary ---
Author Organization [employer] Address [address] [facility] [address] [place] [address] Care Team Providers Care History Teacher Name Role Phone Anny Prado Primary Care Provider [phone] Encounter Details Date Type Department Care Team (Late st Contact Info) Description 02/28/2023 Orders Only [facility] [address] [place] [address] Janina Arnett LPN Social History Tobacco Use Types Packs/Day Years Used Date Smoking Tobacco: Never Assessed Depression Answer Date Recorded Patient Health Questionnaire-9 Score 18 02/05/2023 Depression Answer Date Recorded Patient Health Questionnaire-2 [...] Description 05/07/2025 2:45 PM EDT Procedure Visit [facility]INE [address] [place] [address] Joanne Michele CNM [address] [place] [address] documented as of this encounter Visit Diagnoses Not on filedocumented in this encounter Additional Health Concerns Assessment Noted Time PHQ-9 Depression Total Score: 18 023 11:43 AM EDT documented as of this encounter Care Teams History Teacher Relationship Specialty Start Date End Date Anny Prado ANP [address] [place] [address] PCP - General Family Medicine 06/03/20 documented as of this encounter
--- OUTSIDE RECORDS SUMMARY | 2025-04-07 19:19 | XMS_ITS | Clinical Summary ---
Author Organization [email or web address] Address [address] [facility] [address] [place] [address] Care Team Providers Care Logistics Planning Engineer Name Role Phone Anny Prado Primary Care Provider [phone] Allergies No known active allergies Medications * This document contains information received from the source organization and may not represent a complete record from that organization. ibuprofen 600 MG tablet 01/16/20 23 Active fluticasone (Flonase) 50 MCG/ACT nasal spray SPRAY 1 SPRAY IN EACH NOSTRIL TWICE DAILY 16 g 06/06/20 24 Active Ascorbic Acid (vitamin C) 250 MG tabletIndication s:Iron deficiency anemia, unspecified iron deficiency anemia type Take 1 tablet (250 mg) by mouth Once per day. Take with ferrous sulfate tablets. 90 tablet 5 07/18/20 24 Active ferrous sulfate (FeroSul) 325 (65 Fe) MG tabletIndication s:Iron deficiency anemia, unspecified iron deficiency anemia type TAKE 1 TABLET BY MOUTH EVERY DAY WITH ORANGE JUICE FOR IRON DEFICIENCY 90 tablet 3 12/13/19 25 Active cyclobenzaprine (Flexeril) 5 MG tabletIndication s:Low back pain radiating to left leg Take 1 tablet as needed for back pain, up to TID 30 tablet 12/13/19 25 Active amphetamine-dext roamphetamine XR (Adderall XR) 15 MG 24 hr capsuleIndicatio ns:Attention deficit hyperactivity disorder (ADHD), unspecified ADHD type TAKE 1 CAPSULE BY MOUTH EVERY MORNING. DO NOT CRUSH OR CHEW. 90 capsule 02/12/20 25 Active Tirzepatide-Weig ht Management (Zepbound) 2.5 MG/0.5ML solution auto-injectorInd ications:Class 2 obesity with body mass index (BMI) of 36.0 to 36.9 in adult, unspecified obesity type, unspecified whether serious comorbidity present Inject 0.5 mL (2.5 mg) under the skin 1 (one) time per week. 2 mL 04/07/20 Active triamcinolone (Kenalog) 0.1 % creamIndications :Rash Apply topically 2 times daily. To affected areas 45 g 2 04/07/20 Active HPV 9-valent (Gardasil-9) suspension prefilled syringe vaccine prefilled syringe Inject 0.5 mL into the muscle 1 (one) time for 1 dose. Repeat as directed 0.5 mL 2 04/07/20 25 2024 Active triamcinolone (Kenalog) 0.1 % creamIndications :Rash Apply topically 2 times daily. To affected areas 45 g 2 07/18/20 24 2024 Discontinued(R eorder (will not trigger notification to Pharmacy)) Tirzepatide-Weig ht Management 2.5 MG/0.5ML solution auto-injectorInd ications:Class 3 severe obesity with body mass index (BMI) of 40.0 to 44.9 in adult, unspecified obesity type, unspecified whether serious comorbidity present Inject 0.5 mL (2.5 mg) under the skin 1 (one) time per week. 2 mL 12/13/19 25 2024 Discontinued(T herapy completed) citalopram (CeleXA) 20 MG tabletIndication s:Other specified depressive episodes Take 1 tablet (20 mg) by mouth Once per day. 90 tablet 1 12/13/19 25 2024 Discontinued(I neffective) Active Problems Problem Noted Date Diagnosed Date Low back pain radiating to left leg 12/12/2024 Attention deficit hyperactivity disorder (ADHD) 12/12/2024 Development delay 02/05/2023 History of encephalitis 02/05/2023 Class 3 severe obesity with body mass index (BMI) of 40.0 to 44.9 in adult 02/05/2023 Iron deficiency anemia 05/18/2022 Seizure disorder 05/24/2012 Encounters Date Type Department Care Team Description 04/07/2025 1:00 PM EDT Office Visit [address] [phone] Anny Prado, ANP Attention deficit hyperactivity disorder (ADHD), unspecified ADHD type (Primary Dx); PCOS (polycystic ovarian syndrome); Class 2 obesity with body mass index (BMI) of 36.0 to 36.9 in adult, unspecified obesity type, unspecified whether serious comorbidity present; Depression with anxiety; Rash; Routine screening for STI (sexually transmitted infection); Homelessness 04/07/[address] [facility] [address] [place] [phone] Anny Prado ANP Care Coordination ([facility] outreach for [facility] housing search-referral completed ) 04/07/2025 Travel 04/06/[address] [facility] [address] [place] [phone] Anny Prado ANP chart prep 03/24/[address] [phone] Anny Prado ANP Med Refill 03/20/[address] [address] Anny Prado ANP Referral 03/05/[address] [address] Anny Prado ANP Chart Prep 02/27/[address] [facility] [address] [place] [phone] Angel Rodriguez DDS 02/11/[address] [address] Anny Prado ANP Attention deficit hyperactivity disorder (ADHD), unspecified ADHD type 01/30/[address] [phone] Anny Prado ANP Nurse Triage 01/26/[address] [address] Anny Prado ANP Appointment Request; Lab Orders 01/12/[address] [address] Anny Prado ANP Attention deficit hyperactivity disorder (ADHD), unspecified ADHD type from Last 3 Months Immunizations Immunization Administration Dates Next Due DTP 07/30/1996, 4,1992,1992,1992 HPV, Quadrivalent 09/21/2010, 1,08/22/2010,2010,09/28/2009,09/28/2009 Hep B, adult 12/14/1993, 3,1992,1991 Hib (HbOC) 12/14/1993, 3,1992,1991 IPV 08/09/1996, 4,1992,1991 Influenza injectable quadriv alent IIV4 with preservative 04/14/2016 Influenza injectable quadriv alent preservative free 05/24/2023,05/18/2022,10/17/2021,2018 Influenza, IIV3, injectable 07/03/2014, 1 Influenza, Split (incl. hal fied surface antigen) 04/08/2013 Influenza, seasonal, injecta ble, preservative free 07/18/2024 MMR 10/07/1993,02/22/1993 Tdap 05/24/2023,09/22/2011 Varicella 01/25/2012,05/31/2009 Family History Medical History Relation Name Comments Cancer Father prostate and michele ng Diabetes Mother Hypertension Mother Relation Name Status Comments Father Mother Social History Tobacco Use Types Packs/Day Years [...] with others, in a hotel, in a retirement, living outside on the street, on a [...] Orientation Straight 05/22/2022 10 :20 AM EDT Last Filed Vital Signs Vital Sign Reading Time Taken Comments Blood Pressure 108/68 04/07/2025 1:03 PM EDT Pulse 96 04/07/2025 1:03 PM EDT Temperature 37.1 C (98.7 F) 04/07/2025 1:03 PM EDT Respiratory Rate 20 04/07/2025 1:03 PM EDT Oxygen Saturation 99% 07/18/2024 2:02 PM EST Inhaled Oxygen Concentration - - Weight 107 kg (236 lb) 04/07/2025 1:03 PM EDT Height 170.2 cm (5' 7 ) 04/07/2025 1:03 PM EDT Body Mass Index 36.96 04/07/2025 1:03 PM EDT Plan of Treatment Upcoming Encounters Date Type Department Care Team (Late st Contact Info) Description 05/07/2025 2:45 PM EDT Procedure Visit [facility] [address] [place], [place] [phone] Joanne Michele CNM [address] [place] [address] Health Maintenance Due Date Last Done Comments Lipid Panel 1992 Family Planning (PISQ) 02/17/2007 Cervical Cancer Screening 07/20/2023 HPV/Cotest 07/20/2023 Pap Smear 07/20/2023 07/20/2020 Depression Monitoring 01/16/2025 07/18/2024, 024 COVID-19 Vaccine ( season) 2025 Influenza Vaccine (#1) 2025 , 05/24/2023, 05/18/2022, Additional history exists Alcohol/Substance Use Screening 07/18/2025 07/18/2024 Disability Screening 12/12/2025 12/12/2024 SDOH Screening 04/07/2026 04/07/2025 Tobacco Screening 04/07/2026 04/07/2025 DTaP/Tdap/Td Vaccines (8 - Td or Tdap) 05/24/2033 05/24/2023, 09/22/2011, 07/30/1996, Additional history exists Zoster Vaccines (1 of 2) 02/17/2042 RSV Patients and Patients Aged 60 years or older (1 - 1-dose 75+ series) 02/17/2067 HIB Vaccines Completed 12/14/1993, 09/20, 1992, Additional history exists Hepatitis B Vaccines Completed 12/14/1993, 1992, 1992, Additional history exists IPV Vaccines Completed 08/09/1996, 09/20, 1992, Additional history exists HPV Vaccines Discontinued 09/21/2010, 08/2010, 08/22/2010, Additional history exists HIV Screening Completed 10/27/2021 Hepatitis C Screening Completed 10/27/2021 Hepatitis A Vaccines Aged Out No long er eligible based on patient's age to complete this topic Meningococcal B Vaccine Aged Out No l onger eligible based on patient's age to complete this topic Meningococcal Vaccine Aged Out No mateusz sonny eligible based on patient's age to complete this topic Pneumococcal Vaccine: Pediatrics (0 to 5 Years) and At-Risk Patients (6 to 49) Years Aged Out No longer eligible based on patient's age to complete this topic RSV under 20 months Aged Out No longe r eligible based on patient's age to complete this topic Rotavirus Vaccines Aged Out No longer eligible based on patient's age to complete this topic Procedures Procedure Name Priority Date/Time Associated Diagnosis Comments ZZZ HISTORICAL HEPATITIS C AB W/REFL TO HCV RNA, QN, PCR Routine 10/27/2021 10:10 AM EDT HIV 1/2 ANTIGEN/ANTIBODY, FOURTH GENERATION W/RFL Routine 10/27/2021 10:10 AM EDT THINPREP PAP Routine 07/20/2020 11:59 AM EST from Last 3 Months or Most Recently Relevant to Health Maintenance Results * HEPATITIS C AB W/REFL TO HCV RNA, QN, PCR (10/27/2021 10:10 AM EDT) HEPATITIS C ANTIBODY NON-REACT CAM NON-REACT CAM [facility] INDEX 0.03 <1.00 [facility] Comment: HCV antibody was non-reactive. There is no laboratory evidence of HCV infection. In most cases, no further action is required. However, if recent HCV exposure is suspected, a test for HCV RNA (test code 74369) is suggested. For additional information please refer to http://education.[employer]/faq/AVX52m2 (This link is being provided for informational/ educational purposes only.) 10/27/2021 10:1 0 AM EDT us Anny Prado ANP HISTORICAL/NON ORDERABLE LABS Fi nal Result [facility] [address] * HIV 1/2 ANTIGEN/ANTIBODY,FOURTH GENERATION W/RFL (10/27/2021 10:10 AM EDT) HIV-1/2 ANTIGEN AND ANTIBODIES, 4TH GENERATION W/ REFLEX NON-REACT CAM NON-REACT CAM [facility] Comment: HIV-1 antigen and HIV-1/HIV-2 antibodies were not detected. There is no laboratory evidence of HIV infection. PLEASE NOTE: This information has been disclosed to you from records whose confidentiality may be protected by state law. If your state requires such protection, then the state law prohibits you from making any further disclosure of the information without the specific written consent of the person to whom it pertains, or as otherwise permitted by law. A general authorization for the release of medical or other information is NOT sufficient for this purpose. For additional information please refer to http://education.EnWave/faq/UJN634 (This link is being provided for informational/ educational purposes only.) The performance of this assay has not been clinically validated in patients less than 2 years old. 10/27/2021 10:1 0 AM EDT us Anny LAMBERT LAB BLOOD ORDERABLES Final Resul t Performing Organization Address [facility] de Phone Number [facility] [address] [place] [address], * THINPREP PAP (07/20/2020 11:59 AM EST) Clinical Information: N[facility] COMMENT SEE COMMENT [facility] Comment: EXPLANATORY NOTE: The Pap is a screening test for cervical cancer. It is not a diagnostic test and is subject to false negative and false positive results. It is most reliable when a satisfactory sample, regularly obtained, is submitted with relevant clinical findings and history, and when the Pap result is evaluated along with historic and current clinical information. Sales Representative [employer] : SEE COMMENT [facility] Comment: GSG, CT(ASCP) CT screening location: [place] [address] Interpretation/R esult: Negative for intraepithelial lesion or malignancy. [facility] LMP: N[facility] Prev. BX: N[facility] Prev. PAP: N[facility] SOURCE: CERVICAL [facility] Statement Of Adequacy: SEE COMMENT [facility] Comment: Satisfactory for evaluation. Endocervical/transformation zone component present. 07/20/2020 11:5 9 AM EST Joanne HEBERT LAB PATHOLOGY ORDERABLES Final Result Performing Organization Address [facility] Co de Phone Number [facility] [address] from Last 3 Months or Most Recently Relevant to Health Maintenance Insurance [facility]ARE < [address] [place] [id number] Care Teams Logistics Planning Engineer Relationship Specialty Start Date End Date Anny Prado ANP [address] [place] [phone] PCP - General Family Medicine 06/03/20
--- OUTSIDE RECORDS SUMMARY | 2025-04-07 19:19 | XMS_ITS | Encounter Summary ---
Author Organization [employer] Address [address] [facility] [address] [place] [address] Care Team Providers Care Medical Center Manager Name Role Phone Anny Prado Primary Care Provider [phone] Reason for Visit * Reason Onset Date Comments chart prep 04/06/2025 Encounter Details Date Type Department Care Team (Late st Contact Info) Description 04/06/2025 Telephone [facility] [address] [place], [place] [phone] Anny Prado ANP [address] [place] [address] chart prep Social History Tobacco Use Types Packs/Day Years [...] with others, in a hotel, in a assisted, living outside on the street, on a [...] encounter Miscellaneous Notes * Telephone Encounter - Sanjay Scott MA - 04/06/2025 2:25 PM EDT Chart Prep Labs: done Images: done Referrals: not applicable Vaccines due: Covid, Flu, and HPV Screenings: pap smear Overdue care gaps: SDOH and Oral health screening documented in this encounter Plan of Treatment Upcoming Encounters Date Type Department Care Team (Late st Contact Info) Description 05/07/2025 2:45 PM EDT Procedure Visit [facility] [address] [place] [address] Joanne Michele CNM [address] [place] [address] documented as of this encounter Visit Diagnoses Not on filedocumented in this encounter Additional Health Concerns Assessment Noted Time PHQ-9 Depression Total Score: 16 024 2:13 PM EST documented as of this encounter Care Teams Medical Center Manager Relationship Specialty Start Date End Date Anny Prado ANP [address] [place] [address] PCP - General Family Medicine 06/03/20 documented as of this encounter
[2025-04-08 12:04] LABS: Bacterial Vaginosis PCR POSITIVE (Negative); Candida Group PCR NOT DETECTED (Not Detect); Candida glab krusei PCR NOT DETECTED (Not Detect); Trichomonas vaginalis PCR NOT DETECTED (Not Detect)
[2025-04-08 12:35] LABS: CT PCR NOT DETECTED (Not Detect.); NG PCR NOT DETECTED (Not Detect.)
== END 2025-04-07 18:23 | disposition home or self-care (01) ==
LOC: HO.HHCLNP 18:22
PROVIDERS: Visit Provider Nurse Practitioner Primary Care
DX: Z20.2 Contact with and (suspected) exposure to infections with a predominantly sexual mode of transmission (principal)
CPT/HCPCS: 81515; 87491; 87591

== ENCOUNTER 2025-04-20 10:59 | Outpatient (REF) | payer OTHER, SELFPAY ==
--- OUTSIDE RECORDS SUMMARY | 2025-04-20 12:29 | XMS_ITS | Clinical Summary ---
Author Organization [email or web address] Address [address] [facility] [address] [place] [address] Care Team Providers Care It Risk Advisor Name Role Phone Anny Prado Primary Care Provider [phone] Allergies No known active allergies Medications * [...] (one) time per week. 2 mL 04/07/20 25 Active triamcinolone (Kenalog) 0.1 % creamIndications :Rash Apply topically 2 times daily. To affected areas 45 g 2 04/07/20 25 Active triamcinolone (Kenalog) 0.1 % creamIndications :Rash Apply topically 2 times daily. To affected areas 45 g 2 07/18/20 24 2024 Discontinued(R eorder (will not trigger notification to Pharmacy)) Tirzepatide-Weig ht Management 2.5 MG/0.5ML solution auto-injectorInd ications:Class 3 severe obesity with body mass index (BMI) of 40.0 to 44.9 in adult, unspecified obesity type, unspecified whether serious comorbidity present (HCC) Inject 0.5 mL (2.5 mg) under the skin 1 (one) time per week. 2 mL 12/13/19 25 2024 Discontinued(T herapy completed) citalopram (CeleXA) 20 MG tabletIndication s:Other specified depressive episodes Take 1 tablet (20 mg) by mouth Once per day. 90 tablet 1 12/13/19 25 2024 Discontinued(I neffective) HPV 9-valent (Gardasil-9) suspension prefilled syringe vaccine prefilled syringe Inject 0.5 mL into the muscle 1 (one) time for 1 dose. Repeat as directed 0.5 mL 2 04/07/20 25 2024 metroNIDAZOLE (Flagyl) 500 MG tablet Take 1 tablet (500 mg) by mouth 2 times daily for 7 days. 14 tablet 04/08/20 25 2024 Active Problems Problem Noted Date Diagnosed Date Low back pain radiating to left leg 12/12/2024 Attention deficit hyperactivity disorder (ADHD) 12/12/2024 Development delay 02/05/2023 History of encephalitis 02/05/2023 Class 3 severe obesity with body mass index (BMI) of 40.0 to 44.9 in adult 02/05/2023 Iron deficiency anemia 05/18/2022 Seizure disorder (CMS/HCC) 05/24/2012 Encounters * This document contains information received from the source organization and may not represent a complete record from that organization. Date Type Department Care Team Description 04/13/2025 Travel 04/08/2025 Results Follow-Up [facility] [place] [address] Anny Prado ANP Chlamydia/N. Gonorrhoeae RNA, TMA, Vagina 04/08/2025 Results Follow-Up [address] [place] [address] Anny Prado ANP Bacterial Vaginosis 04/07/2025 1:00 PM EDT Office Visit [address] [address] Anny Prado ANP Attention deficit hyperactivity disorder (ADHD), unspecified ADHD type (Primary Dx); PCOS (polycystic ovarian syndrome); Class 2 obesity with body mass index (BMI) of 36.0 to 36.9 in adult, unspecified obesity type, unspecified whether serious comorbidity present; Depression with anxiety; Rash; Routine screening for STI (sexually transmitted infection); Homelessness 04/07/2025 Patient Outreach [address] [address] Anny Prado ANP Care Coordination ([facility] outreach for [facility] housing search-referral completed ) 04/07/2025 Travel 04/06/[address] [address] Anny Prado ANP chart prep 03/24/[address] [address] Anny Prado ANP Med Refill 03/20/[address] [address] Anny Prado ANP Referral 03/05/[address] [address] Anny Prado ANP Chart Prep 02/27/2025 Telephone [facility] [address] [place] [phone] Angel Rodriguez DDS 02/11/[address] [address] Anny Prado ANP Attention deficit hyperactivity disorder (ADHD), unspecified ADHD type 01/30/2025 Telephone [facility] [address] [place] [address] Anny Prado ANP Nurse Triage 01/26/2025 Telephone [facility] [address] [place] [address] Anny Prado ANP Appointment Request; Lab Orders from Last 3 Months Immunizations Immunization Administration Dates Next Due DTP 07/30/1996, 4,1992,1992,1992 HPV, Quadrivalent 09/21/2010, 1,08/22/2010,2010,09/28/2009,09/28/2009 Hep B, adult 12/14/1993, 3,1992,1991 Hib ([facility]) 12/14/1993, 3,1992,1991 IPV 08/09/1996, 4,1992,1991 Influenza injectable [...] with others, in a hotel, in a detention, living outside on the street, on a [...] 2:45 PM EDT Procedure Visit [facility] [address], [place] [phone] Ryne Joanne, CNRonnie [address] [place] [address] Health Maintenance Due Date Last Done Comments [...] Procedure Name Priority Date/Time Associated Diagnosis Comments BACTERIAL VAGINOSIS PANEL Routine 04/07/2025 2:40 PM EDT Severe obesity (CMS/HCC) CHLAMYDIA/N. GONORRHOEAE RNA, TMA, UROGENITAL Routine 04/07/2025 2:40 PM EDT Routine screening for STI (sexually transmitted infection) ZZZ HISTORICAL HEPATITIS C AB W/REFL TO HCV RNA, QN, PCR Routine 10/27/2021 10:10 AM EDT HIV 1/2 ANTIGEN/ANTIBODY, FOURTH GENERATION W/RFL Routine 10/27/2021 10:10 AM EDT THINPREP PAP Routine 07/20/2020 11:59 AM EST from Last 3 Months or Most Recently Relevant to Health Maintenance Results * (ABNORMAL) Bacterial Vaginosis (04/07/2025 2:40 PM EDT) TRICHOMONAS VAGINALIS DETECTION BY PCR NOT DETECTED Not Detect [facility] BACTERIAL VAGINOSIS DETECTION BY PCR POSITIVE(A) Negative [facility] Comment:The BV organism targ ets of the Xpert Xpress MVP test can becommensal in women; Xpert Xpress MVP positive results forbacterial vaginosis should be considered in conjunction withother clinical and patient information to determine thedisease status. Organisms that are not detected by the XpertXpress MVP test have also been reported to be associatedwith BV and aerobic vaginitis.The Xpert Xpress MVP test performance has not been evaluatedin patients under the age of 14. BRIE GROUP DETECTION BY PCR NOT DETECTED Not Detect [facility] Brie glab krusei PCR NOT DETECTED Not Detect [facility] 04/07/2025 2:40 PM EDT 04/07/2025 6:23 PM EDT [facility] LAB MICROBIOLOGY - GENERAL ORDER BETH Final Result [facility] [address] [place] [address] [phone] * Chlamydia/N. Gonorrhoeae RNA, TMA, Vagina (04/07/2025 2:40 PM EDT) CT PCR NOT DETECTED Not Detect. [facility] Comment:A not detected test result does not exclude the possibilityof infection because test results can be affected byimproper specimen collection, concurrent antibiotic therapy,or the number of organisms in the specimen which may bebelow the sensitivity of the test. As with many diagnostictests, results from the Xpert CT/NG assay should beinterpreted in conjunction with other laboratory andclinical data available to the clinician.Xpert CT/NG performance has not been evaluated in patientsless than 14 years of age. The assay should not be used forthe evaluationof suspected sexual abuse or for other medico-legalindications. Additional testing is recommended in anycircumstance when false positive or false negative resultscould lead to adverse medical, social or psychologicalconsequences. NG PCR NOT DETECTED Not Detect. [facility] Comment:A not detected test result does not exclude the possibilityof infection because test results can be affected byimproper specimen collection, concurrent antibiotic therapy,or the number of organisms in the specimen which may bebelow the sensitivity of the test. As with many diagnostictests, results from the Xpert CT/NG assay should beinterpreted in conjunction with other laboratory andclinical data available to the clinician.Xpert CT/NG performance has not been evaluated in patientsless than 14 years of age. The assay should not be used forthe evaluationof suspected sexual abuse or for other medico-legalindications. Additional testing is recommended in anycircumstance when false positive or false negative resultscould lead to adverse medical, social or psychologicalconsequences. Swab Vaginal structure / Unknown 04/07/2025 2:40 PM EDT 04/07/2025 6:23 PM EDT us Anny Prado ANP LAB MICROBIOLOGY - GENERAL ORDER BETH Final Result Performing Organization Address [facility] Co de Phone Number [facility] [address] [place] [address] [phone] * HEPATITIS C AB W/REFL TO HCV RNA, QN, PCR (10/27/2021 10:10 AM EDT) HEPATITIS C ANTIBODY NON-REACT CAM NON-REACT CAM [facility] INDEX 0.03 <1.00 [facility] Comment: HCV antibody was non-reactive. There is no laboratory evidence of HCV infection. In most cases, no further action is required. However, if recent HCV exposure is suspected, a test for HCV RNA (test code 34314) is suggested. For additional information please refer to http://education.[employer]/faq/WFG19f5 (This link is being provided for informational/ educational purposes only.) 10/27/2021 10:1 0 AM EDT us Anny Prado ANP HISTORICAL/NON ORDERABLE LABS Fi nal Result Performing Organization Address [facility] Co de Phone Number [facility] [address] [place] [address] * HIV 1/2 ANTIGEN/ANTIBODY,FOURTH GENERATION W/RFL (10/27/2021 10:10 AM EDT) HIV-1/2 ANTIGEN AND ANTIBODIES, 4TH GENERATION W/ REFLEX NON-REACT CAM NON-REACT CAM [facility] Comment: HIV-1 antigen and HIV-1/HIV-2 [...] purpose. For additional information please refer to http://education.[employer]ig[employer]/faq/IMM950 (This link is being provided for informational/ educational purposes only.) The performance of this assay has not been clinically validated in patients less than 2 years old. 10/27/2021 10:1 0 AM EDT Anny LAMBERT LAB BLOOD ORDERABLES Final Resul t Performing Organization Address [facility] de Phone Number [facility] [address] [place] [address], * THINPREP PAP (07/20/2020 11:59 AM EST) [...] along with historic and current clinical information. Yarn Mercerizer Operator : SEE COMMENT [facility] Comment: GSG, CT(ASCP) CT screening location: [place] [address] Interpretation/R esult: Negative for intraepithelial lesion or malignancy. [facility] LMP: NONE [facility] Prev. BX: NONE [facility] Prev. PAP: NONE [facility] SOURCE: CERVICAL [facility] Statement Of Adequacy: SEE COMMENT [facility] Comment: Satisfactory for evaluation. Endocervical/transformation zone component present. 07/20/2020 11:5 9 AM EST Joanne Michele CNM LAB PATHOLOGY ORDERABLES Final Result Performing Organization Address [facility] Co de Phone Number [facility] [address] [place] [address] from Last 3 Months or Most Recently Relevant to Health Maintenance Insurance [facility] CARE < 65 [place] [id number] Care Teams It Risk Advisor Relationship Specialty Start Date End Date Anny Prado ANP [address] [place] [id number] PCP - General Family Medicine 06/03/20
--- OUTSIDE RECORDS SUMMARY | 2025-04-20 12:29 | XMS_ITS | Clinical Summary ---
Author Organization [facility] Address [address] [place] [address] Phone Care Team Providers Care Rehabilitation Services Manager Name Role Phone Physician, Pcp Unknown Primary Care Provider Michelle vailable Allergies No known active allergies Medications No known medications Active Problems Comments Yes No known active problems Encounters Date Type Department Care Team Description 02/01/2025 12:24 PM EDT - 02/01/2025 5:01 PM EDT Emergency [facility] Emergency [address] [place] [phone] Ramu Mariscal MD Miscarriage (Primary Dx); Pelvic pain; Trichomonal vaginitis; PID (acute pelvic inflammatory disease) Discharge Disposition: Home or Self Care 01/30/2025 4:41 PM EDT - 01/30/2025 6:29 PM EDT Emergency [facility] Emergency [address] [place] [phone] Vaginal bleeding in (Primary Dx) Discharge Disposition: Home or Self Care from Last 3 Months Surgical History Surgery Date Site/Laterality Comments EYE SURGERY Medical History Medical History Date Comments Seizures ([facility] V24, [facility] V28) Anemia Social History Tobacco Use Types [...] 05/24/2033 05/24/2023, 09/22/2011, 07/30/1996, Additional history exists RSV Immunization Adult Patients (1 - 1-dose 75+ series) 02/17/2067 HIB [...] embryonic tissue identified 02/03/2025 7:52 AM EDT [facility] Clinical Information Gestational age on date of collection: 3-4 weeks determined by LMP (01/02/2025) Cytogenetic study 02/03/2025 7:52 AM EDT [facility] Gross Description A. Uterus, POC: [...] apparent grossly. TS 02/03/2025 7:52 AM EDT [facility] Disclaimer Unless otherwise specified, all tissue is 10% NB formalin fixed and paraffin embedded. 02/03/2025 7:52 AM EDT [facility] Tissue Uterine structure / Unknown Non-blood Collection / Unknown 02/01/2025 3:34 PM EDT 02/02/2025 7:41 AM EDT Miguel Angel MARTINEZ LAB PATHOLOGY ORDERAB LES Final Result [facility] [address] [place] [address], * (ABNORMAL) Chlamydia trachomatis and Neisseria gonorrhoeae molecular study (02/01/2025 2:55 PM EDT) Neisseria gonorrhoeae PCR Negative Negative LAB MOLECULAR DIAGNOSTICS METHOD 02/03/2025 9:58 AM EDT [facility] Chlamydia trachomatis PCR Positive(A) Negative LAB MOLECULAR DIAGNOSTICS METHOD 02/03/2025 9:58 AM EDT [facility] Swab Cervix uteri structure / Unknown Non-blood Collection / Unknown 02/01/2025 2:55 PM EDT 02/01/2025 3:27 PM EDT us Miguel Angel MARTINEZ LAB MICROBIOLOGY - GE NERAL ORDERABLES Final Result [facility] [address] [place] [address], [place] [phone] * (ABNORMAL) Wet prep, genital (02/01/2025 2:55 PM EDT) [facility] Clue Cells, Wet Prep Negative Negative 02/01/2025 3:40 PM EDT [facility] Yeast, Wet Prep Negative Negative 02/01/2025 3:40 PM EDT [facility] Trichomonas, Wet Prep Positive(A) Negative 02/01/2025 3:40 PM EDT [facility] Swab Vaginal structure / Unknown Non-blood Collection / Unknown 02/01/2025 2:55 PM EDT 02/01/2025 3:27 PM EDT Miguel Angel MARTINEZ LAB MICROBIOLOGY - [facility] ORDERABLES Final Result [facility] [address] [place] [address], [place] [phone] * (ABNORMAL) Urinalysis with reflex microscopic and culture (02/01/2025 2:02 PM EDT) Only the most recent of2 resultswithin the time period is included. [facility] Specific [place] Urine 1.029 1.003 - 1.030 LAB URINALYSIS - AUTOMATED METHOD 02/01/2025 2:59 PM EDT [facility] pH, Urine 5.5 5.0 - 8.0 pH LAB URINALYSIS - AUTOMATED METHOD 02/01/2025 2:59 PM EDT [facility] Leukocytes, Urine Moderate(A) Negative LAB URINALYSIS - AUTOMATED METHOD 02/01/2025 2:59 PM EDT [facility] Nitrite, Urine Negative Negative LAB URINALYSIS - AUTOMATED METHOD 02/01/2025 2:59 PM EDT [facility] Protein, Urine 100(A) <=Trace mg/dL LAB URINALYSIS - AUTOMATED METHOD 02/01/2025 2:59 PM [facility] Glucose, Urine Negative Negative mg/dL LAB URINALYSIS - AUTOMATED METHOD 02/01/2025 2:59 PM [facility] Ketones, Urine Trace(A) Negative mg/dL LAB URINALYSIS - AUTOMATED METHOD 02/01/2025 2:59 PM [facility] Urobilinogen , Urine 1.0 0.2 - 1.0 mg/dL LAB URINALYSIS - AUTOMATED METHOD 02/01/2025 2:59 PM [facility] Bilirubin, Urine Negative Negative LAB URINALYSIS - AUTOMATED METHOD 02/01/2025 2:59 PM [facility] Blood, Urine Large(A) Negative LAB URINALYSIS - AUTOMATED METHOD 02/01/2025 2:59 PM [facility] RBC, Urine >4,000(H) 0 - 4 /HPF LAB URINALYSIS - AUTOMATED METHOD 02/01/2025 2:59 PM [facility] WBC, Urine 118.6(H) 0 - 4 /HPF LAB URINALYSIS - AUTOMATED METHOD 02/01/2025 2:59 PM [facility] Squamous Epithelial, Urine >100(H) 0 - 60 /LPF LAB URINALYSIS - AUTOMATED METHOD 02/01/2025 2:59 PM [facility] Bacteria, Urine Negative Negative /HPF LAB URINALYSIS - AUTOMATED METHOD 02/01/2025 2:59 PM [facility] Hyaline Casts, Urine 3.0 0 - 3 /LPF LAB URINALYSIS - AUTOMATED METHOD 02/01/2025 2:59 PM [facility] Trichomonas, Urine Present(A) None Seen /HPF LAB URINALYSIS - AUTOMATED METHOD 02/01/2025 2:59 PM [facility] Urine Urine specimen obtained by clean catch procedure / Unknown Non-blood Collection / Unknown 02/01/2025 2:02 PM EDT 02/01/2025 2:19 PM EDT [facility] [employer]ang [employer] Medical [employer]Sarah [employer] LAB URINE ORDERABLES Final Result Performing Organization Address [facility]/ZIP Co de Phone Number [facility] [address] [place] [address], [place] [phone] * Drake urine culture tube (02/01/2025 2:02 PM EDT) Only the most recent of2 resultswithin the time period is included. Extra Tube Hold for add-ons. 02/01/2025 4:01 PM EDT [facility] Comment:Auto resulted. Urine Urine specimen obtained by clean catch procedure / Unknown Non-blood Collection / Unknown 02/01/2025 2:02 PM EDT 02/01/2025 2:19 PM EDT [facility] authorGENuleta CT LAB URINE ORDERABLES Final Result Performing Organization Address [facility] Co de Phone Number [facility] [address] [place] [address], [place] [phone] * Culture urine (02/01/2025 2:02 PM EDT) Only the most recent of2 resultswithin the time period is included. Culture, Urine 50,000-99,000 CFU/mL Mixed urogenital nadya, no uropathogens present. Suggest repeat specimen if clinically indicated. 02/02/2025 11:01 AM EDT [facility] Urine Urine specimen obtained by clean catch procedure / Unknown Non-blood Collection / Unknown 02/01/2025 2:02 PM EDT 02/01/2025 2:59 PM EDT [facility] [employer] LAB MICROBIOLOGY - GE NERAL ORDERABLES Final Result [facility] [address] [place] [address], * (ABNORMAL) CBC auto differential (02/01/2025 1:01 PM EDT) Only the most recent of2 resultswithin the time period is included. WBC 7.7 4.8 - 10.8 K/mcL LAB HEMETOLOGY METHOD 02/01/2025 1:18 PM EDT [facility] RBC 5.00(H) 3.80 - 4.80 M/mcL LAB HEMETOLOGY METHOD 02/01/2025 1:18 PM EDT [facility] Hemoglobin 12.0 11.5 - 16.0 g/dL LAB HEMETOLOGY METHOD 02/01/2025 1:18 PM EDT [facility] Hematocrit 38.1 35.0 - 47.0 % LAB HEMETOLOGY METHOD 02/01/2025 1:18 PM EDT [facility] MCV 77.0(L) 79.0 - 98.0 FL LAB HEMETOLOGY METHOD 02/01/2025 1:18 PM EDT [facility] MCH 24.2(L) 27.0 - 32.0 pcg LAB HEMETOLOGY METHOD 02/01/2025 1:18 PM EDT [facility] MCHC 31.5(L) 32.0 - 37.0 g/dL LAB HEMETOLOGY METHOD 02/01/2025 1:18 PM EDT [facility] RDW 15.8(H) 11.0 - 15.0 % LAB HEMETOLOGY METHOD 02/01/2025 1:18 PM EDT [facility] Platelets 348 130 - 400 K/mcL LAB HEMETOLOGY METHOD 02/01/2025 1:18 PM EDT [facility] MPV 11.1(H) 7.0 - 11.0 FL LAB HEMETOLOGY METHOD 02/01/2025 1:18 PM EDT [facility] NRBC 0.0 <1.0 % LAB HEMETOLOGY METHOD [facility] NR[facility] Absolute 0.00 <0.10 K/mcL LAB HEMETOLOGY METHOD 02/01[facility]2025 [facility] Neutrophils Relative 73.2 % LAB HEMETOLOGY METHOD 02/01/2025 1:18 PM [facility] Lymphocytes Relative 17.8 % LAB HEMETOLOGY METHOD 02/01/2025 1:18 PM [facility] Monocytes Relative 6.4 % LAB HEMETOLOGY METHOD 02/01/2025 1:18 PM [facility] Eosinophils Relative 1.8 % LAB HEMETOLOGY METHOD 02/01/2025 1:18 PM [facility] Basophils Relative 0.5 % LAB HEMETOLOGY METHOD 02/01/2025 1:18 PM [facility] Immature Granulocytes Relative 0.3 % LAB HEMETOLOGY METHOD 02/01/2025 1:18 PM [facility] Neutrophils Absolute 5.63 1.50 - 7.00 K/mcL LAB HEMETOLOGY METHOD 02/01[facility]2025 1:[facility] Lymphocytes Absolute 1.37 1.00 - 5.00 K/mcL LAB HEMETOLOGY METHOD 02/01/2025 [facility] Monocytes Absolute 0.49 0.20 - 1.00 K/mcL LAB HEMETOLOGY METHOD 02/01/2025 1:18 PM [facility] Eosinophils Absolute 0.14 0.00 - 0.50 K/mcL LAB HEMETOLOGY METHOD 02/01/2025 1:[facility] Basophils Absolute 0.04 0.00 - 0.20 K/[facility] LAB HEMETOLOGY METHOD 02/01/2025 1:18 PM EDT [facility] Immature Granulocytes Absolute 0.02 0.00 - 0.03 K/[facility] LAB HEMETOLOGY METHOD 02/01/2025 1:18 PM EDT [facility] Blood Venous blood specimen / Unknown Venipuncture / Unknown 02/01/2025 1:01 PM EDT 02/01/2025 1:09 PM EDT Ramu Mariscal MD LAB BLOOD ORDERABLES Final Resu lt Performing Organization Address City/[facility]/ZIP Co de Phone Number [facility] [address] [place] [address], [place] [phone] * hCG, serum, qualitative (02/01/2025 1:01 PM EDT) Only the most recent of2 resultswithin the time period is included. hCG Qual Negative Negative 02/01/2025 1:30 PM EDT [facility] Blood Venous blood specimen / Unknown Venipuncture / Unknown 02/01/2025 1:01 PM EDT 02/01/2025 1:09 PM EDT Bob Tinsley MD LAB BLOOD ORDERABLES Final Result Performing Organization Address City/[facility]/ZIP Co de Phone Number [facility] [address] [place] [address], [place] [phone] * HCG, quantitative (02/01/2025 1:01 PM EDT) Only the most recent of2 resultswithin the time period is included. hCG Quant 4 mIU/mL LAB CHEMISTRY METHOD 02/01/2025 2:11 PM EDT [facility] Blood Venous blood specimen / Unknown Venipuncture / Unknown 02/01/2025 1:01 PM EDT 02/01/2025 1:09 PM EDT Narrative [facility] - 02/01/2025 2:11 PM EDT Quantitative HCG Reference Ranges Time after Conception MIU/ML 0.2-1 Week 5-50 1-2 Weeks 50-500 2-3 Weeks 100-5,000 3-4 Weeks 500-10,000 4-5 Weeks 1,000-50,000 5-6 Weeks 10,000-100,000 6-8 Weeks 15,000-200,000 2-3 Months 10,000-100,000 2nd Trimester 1,000-94,000 3rd Trimester 2,500-90,000 Non- Females 1-3 Miguel Angel MARTINEZ LAB BLOOD ORDERABLES Final Result Performing Organization Address [facility] Co de Phone Number [facility] [address] [place] [address], [place] [phone] * Lipase (02/01/2025 1:01 PM EDT) [facility] Lipase 39 13 - 75 unit/L LAB CHEMISTRY METHOD 02/01/2025 1:33 PM EDT [facility] Blood Venous blood specimen / Unknown Venipuncture / Unknown 02/01/2025 1:01 PM EDT 02/01/2025 1:09 PM EDT Ramu Mariscal MD LAB BLOOD ORDERABLES Final Resu lt Performing Organization Address [facility] Co de Phone Number [facility] [address] [place] [address], [place] [phone] * (ABNORMAL) Comprehensive metabolic panel (02/01/2025 1:01 PM EDT) Only the most recent of2 resultswithin the time period is included. Sodium 140 133 - 145 mmol/L LAB CHEMISTRY METHOD 02/01/2025 1:33 PM [facility] Potassium 4.1 3.5 - 5.5 mmol/L LAB CHEMISTRY METHOD 02/01/2025 1:33 PM [facility] Chloride 111(H) 96 - 110 mmol/L LAB CHEMISTRY METHOD 02/01/2025 1:33 PM [facility] CO2 25 21 - 32 mmol/L LAB CHEMISTRY METHOD 02/01/2025 1:33 PM [facility] Anion Gap 4 3 - 11 LAB CHEMISTRY METHOD 02/01/2025 1:33 PM [facility] Glucose 97 70 - 100 mg/dL LAB CHEMISTRY METHOD 02/01/2025 1:33 PM [facility] BUN 9 5 - 25 mg/dL LAB CHEMISTRY METHOD 02/01/2025 1:33 PM [facility] Creatinine 0.79 0.50 - 1.10 mg/dL LAB CHEMISTRY METHOD 02/01/2025 1:33 PM [facility] eGFR 102 >=60 mL/min/1. 73m2 LAB CHEMISTRY METHOD 02/01/2025 1:33 PM [facility] Comment:Calculation based on the Chronic Kidney Disease Epidemiology Collaboration (CKD-EPI) equation refit without adjustment for race. BUN/Creatinine Ratio 11.4 LAB CHEMISTRY METHOD 02/01/2025 1:33 PM [facility] Calcium 8.7 8.5 - 10.5 mg/dL LAB CHEMISTRY METHOD 02/01/2025 1:33 PM [facility] AST (SGOT) 42 10 - 42 unit/L LAB CHEMISTRY METHOD 02/01/2025 1:33 PM [facility] ALT (SGPT) 49 10 - 60 unit/L LAB CHEMISTRY METHOD 02/01/2025 1:33 PM [facility] Alkaline Phosphatase 103 42 - 121 unit/L LAB CHEMISTRY METHOD 02/01/2025 1:33 PM EDT [facility] Total Protein 7.3 6.0 - 8.0 g/dL LAB CHEMISTRY METHOD 02/01/2025 1:33 PM EDT [facility] Albumin 3.7 3.2 - 5.0 g/dL LAB CHEMISTRY METHOD 02/01/2025 1:33 PM EDT [facility] Total Bilirubin 0.4 0.0 - 1.4 mg/dL LAB CHEMISTRY METHOD 02/01/2025 1:33 PM EDT [facility] Blood Venous blood specimen / Unknown Venipuncture / Unknown 02/01/2025 1:01 PM EDT 02/01/2025 1:09 PM EDT us Ramu Mariscal MD LAB BLOOD ORDERABLES Final Resu lt [facility] [address] [place] [address], [place] [phone] * US OB Limited 1+ Fetuses (01/30/2025 [...] Signed Date: 01/30/2025 16:57 ET Workstation ID: [id number] Transcribed By: Self Edit Transcribed Date: 01/30/2025 [...] Not applicable Yolk sac size: Not applicable [place]-rump length: Not applicable cardiac rate: Not applicable [...] vascular spectra obtained. Free fluid: None. us Bob Tinsley MD IMG OB US PROCEDURES Edited [...] Signed Date: 01/30/2025 16:57 ET Workstation ID: [id number] Transcribed By: Self Edit Transcribed Date: 01/30/2025 [...] Not applicable Yolk sac size: Not applicable [place]-rump length: Not applicable cardiac rate: Not applicable [...] Not applicable Yolk sac size: Not applicable [place]-rump length: Not applicable cardiac rate: Not applicable [...] Signed Date: 01/30/2025 16:57 ET Workstation ID: [id number] Transcribed By: Self Edit Transcribed Date: 01/30/2025 16:50 ET us Bob Tinsley MD IMG OB US PROCEDURES Final Result * POC , urine manually resulted (01/30/2025 1:59 PM EDT) HCG, Ur POC Negative Negative POC hCG Int QC Pass? Yes Yes Urine Urine specimen obtained by clean catch procedure / Unknown 01/30/2025 1:59 PM EDT us Bob Tinsley MD POINT OF CARE TEST ENTER/ED IT ORDERABLES Final Result from Last 3 Months Insurance [facility] MEDICARE Member Subscriber Plan / Payer (Ef fective 2017-Present) Name:ARMIDA BUSH Relation to Subscriber:Self Name:Jessica Meza Payer ID:[id number] Group ID:[id number] Type:Not on file Address: [address] [place] [address] Care Teams Rehabilitation Services Manager Relationship Specialty Start Date End Date Physician, Pcp Unknown PCP - General 06/04/24
--- OUTSIDE RECORDS SUMMARY | 2025-04-20 12:29 | XMS_ITS | Encounter Summary ---
Author Organization [employer] Address [address] [facility] [address] [place] [address] Care Team Providers Care Hides And Skins Colorer Name Role Phone Anny Prado Primary Care Provider [phone] Encounter Details Date Type Department Care Team ([facility] st Contact Info) Description 04/08/2025 Results Follow-Up [facility] [address] [place] [address] Anny Prado ANP [address] [place] [address] Chlamydia/N. Gonorrhoeae RNA, TMA, Vagina Social History Tobacco Use Types Packs/Day Years [...] with others, in a hotel, in a mcfp, living outside on the street, on a [...] Description 05/07/2025 2:45 PM EDT Procedure Visit [facility] [address] [place] [address] Joanne Michele CNM [address] [place] [address] documented as of this encounter Visit Diagnoses Not on filedocumented in this encounter Additional Health Concerns Assessment Noted Time PHQ-9 Depression Total Score: 16 024 2:13 PM EST documented as of this encounter Care Teams Hides And Skins Colorer Relationship Specialty Start Date End Date Anny Prado ANP [address] [place] [address] PCP - General Family Medicine 06/03/20 documented as of this encounter
--- OUTSIDE RECORDS SUMMARY | 2025-04-20 12:29 | XMS_ITS | Encounter Summary ---
Author Organization [employer] Address [address] [facility] [address] [place] [address] Care Team Providers Care Principal System Software Engineer Name Role Phone Anny Prado Primary Care Provider [phone] Reason for Visit * Reason Onset Date Comments Nurse Triage 03/11/2024 Encounter Details Date Type Department Care Team (Late st Contact Info) Description 03/11/2024 Telephone [facility] [address] [place], [place] [phone] Anny Prado ANP [address] [place] [address] Nurse Triage Social History Tobacco Use Types [...] Description 05/07/2025 2:45 PM EDT Procedure Visit [facility] [address] [place] [address] Joanne Michele CNM [address] [place] [address] documented as of this encounter Visit Diagnoses Not on filedocumented in this encounter Additional Health Concerns Assessment Noted Time PHQ-9 Depression Total Score: 18 023 11:43 AM EDT documented as of this encounter Care Teams Principal System Software Engineer Relationship Specialty Start Date End Date Anny Prado ANP [address] [place] [address] PCP - General Family Medicine 06/03/20 documented as of this encounter
--- OUTSIDE RECORDS SUMMARY | 2025-04-20 12:29 | XMS_ITS | Encounter Summary ---
Author Organization [employer] Address [address] [facility] [address] [place] [address] Care Team Providers Care Diamond Finishing Supervisor Name Role Phone Anny Prado Primary Care Provider Reason for Visit * Reason Onset Date Comments Referral 03/20/2025 Encounter Details Date Type Department Care Team (Late st Contact Info) Description 03/20/2025 Telephone [facility] [address] [place], [place] [phone] Anny Prado ANP [address] [place] [address] Referral Social History Tobacco Use Types Packs/Day [...] Tc from pt requesting a referral to [facility] for a therapist Contact pt at [phone] documented in this encounter Plan of Treatment Upcoming Encounters Date Type Department Care Team (Late st Contact Info) Description 05/07/2025 2:45 PM EDT Procedure Visit [facility] [address] [place] [address] Joanne Michele CNM [address] [place] [address] documented as of this encounter Visit Diagnoses Not on filedocumented in this encounter Additional Health Concerns Assessment Noted Time PHQ-9 Depression Total Score: 16 024 2:13 PM EST documented as of this encounter Care Teams Diamond Finishing Supervisor Relationship Specialty Start Date End Date Anny Prado ANP [address] [place] [address] PCP - General Family Medicine 06/03/20 documented as of this encounter
--- OUTSIDE RECORDS SUMMARY | 2025-04-20 12:29 | XMS_ITS | Encounter Summary ---
Author Organization [employer] Address [address] [facility] [address] [place] [address] Care Team Providers Care Skin Drier Name Role Phone Anny Prado Primary Care Provider [phone] Encounter Details Date Type Department Care Team (Late st Contact Info) Description 02/28/2023 Orders Only [facility] [address] [place] [address] Janina Arnett LPN Social History Tobacco Use [...] Description 05/07/2025 2:45 PM EDT Procedure Visit [facility] [address] [place] [address] Joanne Michele CNM [address] [place] [address] documented as of this encounter Visit Diagnoses Not on filedocumented in this encounter Additional Health Concerns Assessment Noted Time PHQ-9 Depression Total Score: 18 023 11:43 AM EDT documented as of this encounter Care Teams Skin Drier Relationship Specialty Start Date End Date Anny Prado ANP [address] [place] [address] PCP - General Family Medicine 06/03/20 documented as of this encounter
[2025-04-20 13:23] LABS: MANUAL DIFF FLAG NO
[2025-04-20 13:32] LABS: Hematocrit 37.6 % (37.0-47.0); Hemoglobin 11.9 g/dl (12.0-16.0); Imm Gran Abs Auto 0.01 X10*3/uL (0.00-0.03); Imm Gran Pct Auto 0.1 % (0.0-0.4); Lymphocytes Absolute Auto 1.5 X10*3/uL (1.2-4.9); Mean Corpuscular HGB Conc 31.6 g/dl (31.0-35.0); Mean Corpuscular Hemoglobin 24.4 pg (27.0-33.0); Mean Corpuscular Volume 77.2 fL (80.0-98.0); NRBC Abs Auto 0.000 X10*3/uL (0.0-0.012); NRBC Pct Auto 0.0 /100WBC (0.0-0.2); Platelet Count 408 X10*3/uL (160-400); Red Blood Count 4.87 X10*6/uL (4.20-5.50); White Blood Count 7.7 X10*3/uL (4.8-10.8)
[2025-04-20 14:08] LABS: Cholesterol 147 mg/dL (<200); HDL Cholesterol 35 mg/dL (>40); Iron 33 mcg/dL (30-160); Percent Iron Saturation 11 % (15-50); Total Iron Binding Capacity 293 mcg/dL (228-428); Triglycerides 122 mg/dL (<150); Unsaturated Iron Binding 260 ug/dL
[2025-04-20 14:10] LABS: Hemoglobin A1C 133.0730 umol/L; Total Hemoglobin (HGBA1C) 3921.7779 umol/L
[2025-04-20 14:16] LABS: Ferritin 38 ng/mL (10-122)
[2025-04-21 05:12] LABS: Syphilis Screen Nonreactive (Nonreactive)
[2025-04-21 05:48] LABS: HIV Num 1 0.06 S/CO (0.00-0.99)
== END 2025-04-20 11:00 | disposition home or self-care (01) ==
LOC: HO.HHCL 10:59
PROVIDERS: PCP Nurse Practitioner Primary Care; Visit Provider Nurse Practitioner Primary Care
DX: Z13.1 Encounter for screening for diabetes mellitus (principal); E66.812 Obesity, class 2; E66.01 Morbid (severe) obesity due to excess calories; Z68.36 Body mass index [BMI] 36.0-36.9, adult; D50.9 Iron deficiency anemia, unspecified; Z20.2 Contact with and (suspected) exposure to infections with a predominantly sexual mode of transmission
CPT/HCPCS: 36415; 80061; 82728; 83036; 83540; 84443; 85025; 86780; 87389

== ENCOUNTER 2025-05-07 18:48 | Outpatient (REF) | payer OTHER, SELFPAY ==
--- OUTSIDE RECORDS SUMMARY | 2025-05-07 14:45 | XMS_ITS | Encounter Summary ---
Author Organization [employer] Address [address] [facility] [address] [place] [address] Care Team Providers Care Gas Plant Dispatcher Name Role Phone Anny Prado Primary Care Provider [phone] Encounter Details Date Type Department Care Team (Latest Contact Info) Description 05/07/2025 2:45 PM EDT Procedure Visit [facility] [address] [place], [place] [id number] Joanne Michele CN [address] [place] [address] Cervical cancer screening (Primary Dx); Screening examination for venereal disease; Encounter for preconception consultation Social History Tobacco Use Types Packs/Day Years Used Date Smoking Tobacco: Never Smokeless Tobacco: Never Alcohol Use Standard Drinks/Week Comments Never 0 (1 standard drink = 0.6 oz pur e alcohol) Depression Answer Date Recorded Patient Health Questionnaire-9 Score 17 04/20/2025 Patient Health Questionnaire-9 Score 17 04/20/2025 Last PHQ-9: Questionnaire Data Not on file 0 04/20/2025 Housing Stability Answer Date Recorded What is your housing situation today? I do not have housing (Staying with others, in a hotel, in a usp, living outside on the street, on a [...] Date Recorded Patient Health Questionnaire-2 Score 6 04/20/2025 Internet Access Answer Date Recorded Internet Access Q1 No 04/07/2025 Internet Access Q2 Not on file 04/07/2025 Comments No Intention Date Recorded Wants to become (finding) 05/07 Sex and Gender Information Value Date Recorded Sex Assigned at Female 05/22/2022 10:20 AM EDT Legal Sex Female 10:20 AM EDT Gender Identity Female 05/22/2022 10:20 AM EDT Sexual Orientation Straight 05/22/2022 10 :20 AM EDT documented as of this encounter Last Filed Vital Signs Vital Sign Reading Time Taken Comments Blood Pressure 110/70 05/07/2025 2:59 PM EDT Pulse 64 05/07/2025 2:59 PM EDT Temperature 37.1 C (98.8 F) 05/07/2025 2:59 PM EDT Respiratory Rate 14 05/07/2025 2:59 PM EDT Oxygen Saturation 98% 05/07/2025 2:59 PM EDT Inhaled Oxygen Concentration - - Weight 108 kg (237 lb 6.4 oz) 05/07/2025 2:59 PM EDT Height - - Body Mass Index 37.18 04/07/2025 1:03 PM EDT documented in this encounter Progress Notes * Joanne Michele CNM - 05/07/2025 2:45 PM EDT Subjective Patient ID: Jessica Blanco is a 35 y.o. female who presents for pap Pap NIL 06/2020. Treated for chlamydia 01/2025. Gonorrhea/Chlamydia/trichomonas, HIV and syphilis neg 03/2025. Treated for bacterial vaginosis 03/2025. EPL, treated for PID and trichomonas 01/2025. Coping okay, would like to get again. 1 AMAB partner x 6m, no safety concerns. Declines CBE today. Review of Systems Genitourinary: Negative for dyspareunia, dysuria, frequency, genital sores, hematuria, menstrual problem, pelvic pain, urgency, vaginal bleeding, vaginal discharge and vaginal pain. No abnormal pap, no abnormal bleeding, no breast pain, no breast mass, no nipple discharge Objective BP 110/70 (BP Location: Left arm, Patient Position: Sitting, BP Cuff Size: Adult) Pulse 64 Temp98.8 ??F (37.1 ??C) (Oral) Resp 14 Wt 237 lb 6.4 oz (108 kg) LMP 04/11/2025 SpO2 98% BMI 37.18 kg/m?? Physical Exam Billing And Insurance Coordinator present: declines it security manager. Constitutional: Appearance: Normal appearance. Genitourinary: General: Normal vulva. Labia: Right: No rash, tenderness, lesion or injury. Left: No rash, tenderness, lesion or injury. Vagina: Normal. No signs of injury and foreign body. No vaginal discharge, erythema, tenderness, bleeding or lesions. Cervix: Friability present. No cervical motion tenderness, discharge, lesion, erythema, cervical bleeding or eversion. Uterus: Normal. Not enlarged and not tender. Adnexa: Right adnexa normal and left adnexa normal. Right: No mass, tenderness or fullness. Left: No mass, tenderness or fullness. Neurological: Mental Status: She is alert. Psychiatric: Mood and Affect: Mood normal. Behavior: Behavior normal. Assessment/Plan Diagnoses and all orders for this visit: Cervical cancer screening - Pap Smear Cotest today. Repeat in 5 y if normal/HPV negative. Will contact with results. Screening examination for venereal disease - STI testing add on (NG, CT, Trich) Would like repeat pap based STI testing today. Will contact with results. Encounter for preconception consultation Other orders - folic acid (Folvite) 800 MCG tablet; Take 1 tablet (0.8 mg) by mouth Once per day. Reviewed preconception counseling. Folic acid sent in as she is already taking iron. Urged toxin avoidance if trying to get for both self and partner. Reviewed that there is no amount of alcohol that is safe in , so best to avoid alcohol while trying to get . Report missedmenses. Report irregular periods, or if not after 6 months. Reviewed that we do not offer care, but can refer to provider of her choice. May return any time if interested in control. documented in this encounter Plan of Treatment Scheduled Orders Name Type Priority Associated Diagnoses Orde r Schedule Pap Smear Pathology and Cytology Routine Cervical cancer screening Ordered: 05/07/2025 STI testing add on (NG, CT, Trich) Pathology and Cytology Routine Screening examination for venereal disease Ordered: 05/07/2025 documented as of this encounter Visit Diagnoses Diagnosis Cervical cancer screening- Primary Screening for malignant neoplasm of the cervix Screening examination for venereal disease Encounter for preconception consultation documented in this encounter Additional Health Concerns Assessment Noted Time PHQ-9 Depression Total Score: 17 04/20/ 025 1:23 PM EDT documented as of this encounter Care Teams Gas Plant Dispatcher Relationship Specialty Start Date End Date Anny Prado ANP [address] [place] [id number] PCP - General Family Medicine 06/03/20 documented as of this encounter
--- OUTSIDE RECORDS SUMMARY | 2025-05-07 19:56 | XMS_ITS | Encounter Summary ---
Author Organization [employer] Address [address] [facility] [address] [place] [address] Care Team Providers Care Drilling Field Operator Name Role Phone Anny Prado Primary Care Provider [phone] Encounter Details Date Type Department Care Team (Late st Contact Info) Description 02/28/2023 Orders Only [facility] [address] [place] [address] Janina Arnett LPN Social History Tobacco Use [...] as of this encounter Plan of Treatment Not on file documented as of this encounter Visit Diagnoses Not on filedocumented in this encounter Additional Health Concerns Assessment Noted Time PHQ-9 Depression Total Score: 18 023 11:43 AM EDT documented as of this encounter Care Teams Drilling Field Operator Relationship Specialty Start Date End Date Anny rPado ANP [address] [place] [id number] PCP - General Family Medicine 06/03/20 documented as of this encounter
--- OUTSIDE RECORDS SUMMARY | 2025-05-07 19:56 | XMS_ITS | Encounter Summary ---
Author Organization [employer] Address [address] [facility] [facility] [address] [place] [address] Care Team Providers Care Architecture Instructor Name Role Phone Anny Prado Primary Care Provider [phone] Encounter Details Date Type Department Care Team (Latest Contact Info) Description 05/06/2025 Travel Social History Tobacco Use Types Packs/Day [...] with others, in a hotel, in a prison, living outside on the street, on a [...] Noted Time PHQ-9 Depression Total Score: 17 025 1:23 PM EDT documented as of this encounter Care Teams Architecture Instructor Relationship Specialty Start Date End Date Anny Prado ANP [address] [place] [address] PCP - General Family Medicine 06/03/20 documented as of this encounter
--- OUTSIDE RECORDS SUMMARY | 2025-05-07 19:56 | XMS_ITS | Clinical Summary ---
Author Organization [employer] Address [address] [facility] 7t [place] [address] Care Team Providers Care Cement Loader Name Role Phone Anny Prado Primary Care Provider [phone] Allergies No known active allergies Medications * This document contains information received from the source organization and may not represent a complete record from that organization. ibuprofen 600 MG tablet 3 Active fluticasone (Flonase) 50 MCG/ACT nasal spray SPRAY 1 SPRAY IN EACH NOSTRIL TWICE DAILY 16 g 4 Active Ascorbic Acid (vitamin C) 250 MG tabletIndications :Iron deficiency anemia, unspecified iron deficiency anemia type Take 1 tablet (250 mg) by mouth Once per day. Take with ferrous sulfate tablets. 90 tablet 5 4 Active ferrous sulfate (FeroSul) 325 (65 Fe) MG tabletIndications :Iron deficiency anemia, unspecified iron deficiency anemia type TAKE 1 TABLET BY MOUTH EVERY DAY WITH ORANGE JUICE FOR IRON DEFICIENCY 90 tablet 3 5 Active cyclobenzaprine (Flexeril) 5 MG tabletIndications :Low back pain radiating to left leg Take 1 tablet as needed for back pain, up to TID 30 tablet 5 Active amphetamine-dextr oamphetamine XR (Adderall XR) 15 MG 24 hr capsuleIndication s:Attention deficit hyperactivity disorder (ADHD), unspecified ADHD type TAKE 1 CAPSULE BY MOUTH EVERY MORNING. DO NOT CRUSH OR CHEW. 90 capsule 5 Active Tirzepatide-Weigh t Management (Zepbound) 2.5 MG/0.5ML solution auto-injectorIndi cations:Class 2 obesity with body mass index (BMI) of 36.0 to 36.9 in adult, unspecified obesity type, unspecified whether serious comorbidity present Inject 0.5 mL (2.5 mg) under the skin 1 (one) time per week. 2 mL 5 Active triamcinolone (Kenalog) 0.1 % creamIndications: Rash Apply topically 2 times daily. To affected areas 45 g 2 5 Active folic acid (Folvite) 800 MCG tablet Take 1 tablet (0.8 mg) by mouth Once per day. 30 tablet 11 5 026 Active HPV 9-valent (Gardasil-9) suspension prefilled syringe vaccine prefilled syringe Inject 0.5 mL into the muscle 1 (one) time for 1 dose. Repeat as directed 0.5 mL 2 5 025 metroNIDAZOLE (Flagyl) 500 MG tablet Take 1 tablet (500 mg) by mouth 2 times daily for 7 days. 14 tablet 5 025 Active Problems Problem Noted Date Diagnosed Date Moderate depressive disorder 04/20/2025 Homeless 04/20/2025 Low back pain radiating to left leg [...] organization. Date Type Department Care Team Description 05/07/2025 2:45 PM EDT Procedure Visit [facility] MEDICINE [address] [place] [phone] Joanne Michele CNM Cervical cancer screening (Primary Dx); Screening examination for venereal disease; Encounter for preconception consultation 05/07/2025 Travel 05/06/2025 Travel 05/06/2025 Telephone [facility] MEDICINE [address] [place] [phone] Joanne Michele CNM chart prep 04/22/2025 Telephone [facility] MEDICINE [address] [place] [address] Anny Prado ANP Lab Orders 04/22/2025 Patient Outreach [address] [address] Anny Prado ANP Care Coordination (CM Care Coordination) 04/13/2025 Travel 04/08/2025 Results Follow-Up [address] [address] Anny Prado ANP Chlamydia/N. Gonorrhoeae RNA, TMA, Vagina, TSH W/Reflex to FT4, HIV-1/2 Antigen and Antibodies, Fourth Generation, with Reflexes 04/08/2025 Results Follow-Up [address] [address] Anny Prado ANP Bacterial Vaginosis, CBC auto differential 04/07/2025 1:00 PM EDT Office Visit [address] [address] Anny Prado ANP Attention deficit hyperactivity disorder (ADHD), unspecified ADHD type (Primary Dx); PCOS (polycystic ovarian syndrome); Class 2 obesity with body mass index (BMI) of 36.0 to 36.9 in adult, unspecified obesity type, unspecified whether serious comorbidity present; Depression with anxiety; Rash; Routine screening for STI (sexually transmitted infection); Homelessness 04/07/2025 Patient Outreach [address] [address] Anny Prado ANP Care Coordination (CHW outreach for [facility] housing search-referral completed ) 04/07/2025 Travel 04/06/[address] [address] Anny Prado ANP chart prep 03/24/[address] [address] Anny Prado ANP Med Refill 03/20/[address] [address] Anny Prado ANP Referral 03/05/[address] [address] Anny Prado ANP Chart Prep 02/27/2025 Telephone [facility] ADULT DENTAL [address] [place] [address] Angel Rodriguez DDS 02/11/2025 Refill [facility] MEDICINE [address] [place] [address] Anny Prado ANP Attention deficit hyperactivity disorder (ADHD), unspecified ADHD type from Last 3 Months Immunizations Immunization Administration Dates Next Due DTP 07/30/1996, 4,1992,1992,1992 HPV, Quadrivalent 09/21/2010, 1,08/22/2010,2010,09/28/2009,09/28/2009 Hep B, adult 12/14/1993, 3,1992,1991 Hib ([facility]) 12/14/1993, 3,1992,1991 IPV 08/09/1996, 4,1992,1991 Influenza injectable quadriv alent IIV4 with preservative 04/14/2016 Influenza injectable quadriv alent preservative free 05/24/2023,05/18/2022,10/17/2021,2018 Influenza, IIV3, injectable 07/03/2014, 1 Influenza, Split (incl. hal fied surface antigen) 04/08/2013 Influenza, seasonal, injecta ble, preservative free 07/18/2024 MMR 10/07/1993,02/22/1993 Tdap 05/24/2023,09/22/2011 Varicella 01/25/2012,05/31/2009 Family History Medical History Relation Name Comments Cancer Father Dayne mckeon prostate and lung Diabetes Mother Kristi Holley Hypertension Mother Kristi Holley Relation Name Status Comments Father Dayne mckeon Mother Kristi Holley Social History Tobacco Use Types Packs/Day Years [...] with others, in a hotel, in a intermediate, living outside on the street, on a [...] 6.4 oz) 05/07/2025 2:59 PM EDT Height 170.2 cm (5' 7 ) 04/07/2025 1:03 PM EDT Body Mass Index 37.18 04/07/2025 1:03 PM EDT Plan of Treatment Health Maintenance Due Date Last Done Comments Cervical Cancer Screening 07/20/2023 HPV/Cotest 07/20/2023 Pap Smear 07/20/2023 07/20/2020 COVID-19 Vaccine ( season) 2025 Influenza Vaccine (#1) 2025 , 05/24/2023, 05/18/2022, Additional history exists Alcohol/Substance Use Screening 07/18/2025 07/18/2024 Depression Monitoring 10/18/2025 04/20/2025, 025 SDOH Screening 04/07/2026 04/07/2025 Disability Screening 05/06/2026 05/06/2025 Family Planning (PISQ) 05/07/2026 05/07/2025 Tobacco Screening 05/07/2026 05/07/2025 Lipid Panel 04/20/2030 04/20/2025 DTaP/Tdap/Td Vaccines (8 - Td or Tdap) [...] Discontinued 09/21/2010, 08/2010, 08/22/2010, Additional history exists Hepatitis C Screening Completed 10/27/2021 HIV Screening Completed 04/20/2025, 10/27/2021 Hepatitis A Vaccines Aged Out No [...] Procedure Name Priority Date/Time Associated Diagnosis Comments TSH W/REFLEX TO FT4 Routine 04/20/2025 1 1:35 AM EDT Class 2 obesity with body mass index (BMI) of 36.0 to 36.9 in adult, unspecified obesity type, unspecified whether serious comorbidity present SYPHILIS SCREEN Routine 04/20/2025 11:35 AM EDT Routine screening for STI (sexually transmitted infection) HIV 1/2 ANTIGEN/ANTIBODY, FOURTH GENERATION W/RFL Routine 04/20/2025 11:35 AM EDT Routine screening for STI (sexually transmitted infection) LIPID PANEL, STANDARD Routine 04/20/2025 11:35 AM EDT Severe obesity (CMS/HCC) FERRITIN Routine 04/20/2025 11:35 AM EDT Iron deficiency anemia, unspecified iron deficiency anemia type IRON AND TOTAL IRON BINDING CAPACITY Routine 04/20/2025 11:35 AM EDT Iron deficiency anemia, unspecified iron deficiency anemia type CBC WITH AUTO DIFFERENTIAL Routine 04/20/2025 11:35 AM EDT Iron deficiency anemia, unspecified iron deficiency anemia type HEMOGLOBIN A1C Routine 04/20/2025 11:35 AM EDT Severe obesity (CMS/HCC) BACTERIAL VAGINOSIS PANEL Routine 04/07/2025 2:40 PM EDT Severe obesity (CMS/HCC) CHLAMYDIA/N. GONORRHOEAE RNA, TMA, UROGENITAL Routine 04/07/2025 2:40 PM EDT Routine screening for STI (sexually transmitted infection) ZZZ HISTORICAL HEPATITIS C AB W/REFL TO HCV RNA, QN, PCR Routine 10/27/2021 10:10 AM EDT THINPREP PAP Routine 07/20/2020 11:59 AM EST from Last 3 Months or Most Recently Relevant to Health Maintenance Results * Syphilis Screen (04/20/2025 11:35 AM EDT) [facility] Syphilis Screen Nonreactive Nonreactive [facility] Blood Venous blood specimen / Unknown 04/20/2025 11:35 AM EDT 04/20/2025 1:32 PM EDT Anny Prado [facility] LAB BLOOD ORDERABLES Final Resul t Performing Organization Address [facility] Co de Phone Number [facility] [address] [place] [phone] * TSH W/Reflex to FT4 (04/20/2025 11:35 AM EDT) [facility] TSH reflex Free T4 1.16 0.32 - 4.0 uIU/mL [facility] Blood Venous blood specimen / Unknown 04/20/2025 11:35 AM EDT 04/20/2025 1:32 PM EDT Anny Prado [facility] LAB BLOOD ORDERABLES Final Resul t Performing Organization Address [facility] Co de Phone Number [facility] [address] [place] [phone] * (ABNORMAL) CBC auto differential (04/20/2025 11:35 AM EDT) [facility] White Blood Count 7.7 4.8 - 10.8 X10*3/uL [facility] Red Blood Count 4.87 4.20 - 5.50 X10*6/uL [facility] Hemoglobin 11.9(L) 12.0 - 16.0 g/dl [facility] Hematocrit 37.6 37.0 - 47.0 % [facility] Mean Corpuscular Volume 77.2(L) 80.0 - 98.[address] [facility] Mean Corpuscular Hemoglobin 24.4(L) 27.0 - 33.[address] [facility] Mean Corpuscular HGB Conc 31.6 31.0 - 35.0 g/dl [facility] Red Cell Distribution Width 14.6 11.0 - 16.0 % [facility] Platelet Count 408(H) 160 - 400 X10*3/uL [facility] Mean Platelet Volume 11.6 9.4 - 12.[address] [facility] Neutrophils Percent Auto 71.5 45 - 73 % [facility] Imm Gran Pct Auto 0.1 0.0 - 0.4 % [facility] Lymphocytes Percent Auto 19.6(L) 20 - 40 % [facility] Monocytes Percent Auto 6.9 2 - 11 % [facility] Eosinophils Percent Auto 1.4 0 - 4 % [facility] Basophils Percent Auto 0.5 0 - 2 % [facility] NRBC Pct Auto 0.0 0.0 - 0.2 /100WBC [facility] Neutrophils Absolute Auto 5.5 2.0 - 8.3 x10*3/uL [facility] Imm Gran Abs Auto 0.01 0.00 - 0.03 X10*3/uL [facility] Lymphocytes Absolute Auto 1.5 1.2 - 4.9 X10*3/uL [facility] Monocytes Absolute Auto 0.5 0.1 - 1.2 X10*3/uL [facility] Eosinophils Absolute Auto 0.1 0.0 - 0.4 X10*3/uL [facility] Basophils Absolute Auto 0.0 0.0 - 0.2 X10*3/uL [facility] NRBC Abs Auto 0.000 0.0 - 0.012 X10*3/uL [facility] Blood Venous blood specimen / Unknown 04/20/2025 11:35 AM EDT 04/20/2025 1:19 PM EDT Anny Prado [facility] LAB BLOOD ORDERABLES Final Resul t Performing Organization Address [facility]/ZIP Co de Phone Number [facility] [address] [place] [address] [phone] * (ABNORMAL) Iron And Total Iron Binding Capacity (04/20/2025 11:35 AM EDT) Pathologist [facility] Iron 33 30 - 160 mcg/dL [facility] Total Iron Binding Capacity 293 228 - 428 mcg/dL [facility] Percent Iron Saturation 11(L) 15 - 50 % [facility] Unsaturated Iron Binding 260 ug/dL [facility] Blood Venous blood specimen / Unknown 04/20/2025 11:35 AM EDT 04/20/2025 1:32 PM EDT Anny Prado [facility] LAB BLOOD ORDERABLES Final Resul t Performing Organization Address [facility] de Phone Number [facility] [address] [place] [phone] [phone] * HIV-1/2 Antigen and Antibodies, Fourth Generation, with Reflexes (04/20/2025 11:35 AM EDT) Pathologist [facility] HIV AB/AG Nonreactive Nonreactive [facility] Comment:HIV-1 p24 Ag and/or HIV-1/HIV-2 Ab not detected.A test result that is nonreactive does not exclude thepossibility of exposure to or infection with HIV-1 and/orHIV-2. Nonreactive results in this assay for individualswith prior exposure to HIV-1 and/or HIV-2 may be due toantigen and antibody levels that are below the limit ofdetection of this assay.The [employer] HIV Ag/Ab Combo assay result andsupplemental assay results should be interpreted inconjunction with the patient's clinical presentation,history and other laboratory results. If the results areinconsistent with clinical evidence, additional testing issuggested to confirm the result. Blood Venous blood specimen / Unknown 04/20/2025 11:35 AM EDT 04/20/2025 1:32 PM EDT us Anny Prado ANP LAB BLOOD ORDERABLES Final Resul t Performing Organization Address [facility] Co de Phone Number [facility] [address] [place] [phone] * Hemoglobin A1c (04/20/2025 11:35 AM EDT) Hemoglobin A1c 5.3 <6.0 % [facility] Comment:Hemoglobin A1C Refer ence Range Adults: 4.8 - 6.0 % Non diabetic: < 6.0 % Goal: < 7.0 %Additional Action Suggested: > 8.0 %Note: Hemoglobin A1c results are invalid for patients with abnormal amounts of HbF. Blood transfusions may impact the HbA1c concentration in the patient sample. Estimated Average Glucose 105 mg/dL [facility] Comment:eAG = Estimated ave rage glucose which is %A1C expressed asaverage glucose, using the formula of the A8T-ChyxoydRytaqng Glucose study (ADAG), Diabetes Care, Vol.31,#8,Feb. 2007 Blood Venous blood specimen / Unknown 04/20/2025 11:35 AM EDT 04/20/2025 1:16 PM EDT us Anny Prado ANP LAB BLOOD ORDERABLES Final Resul t Performing Organization Address [facility] Co de Phone Number [facility] [address] [place] [phone] * Ferritin (04/20/2025 11:35 AM EDT) Ferritin 38 10 - 122 ng/mL [facility] Blood Venous blood specimen / Unknown 04/20/2025 11:35 AM EDT 04/20/2025 1:32 PM EDT us Anny Prado ANP LAB BLOOD ORDERABLES Final Resul t Performing Organization Address City/[facility] Co de Phone Number [facility] [address] [place] [phone] * (ABNORMAL) Lipid Panel, Standard (04/20/2025 11:35 AM EDT) Triglycerides 122 <150 mg/dL [facility] Comment:Desirable Triglyceri de: less than 150 mg/dLBorderline High Triglyceride 150-199 mg/dLHigh Triglyceride: 200-499 mg/dLVery High Triglyceride: greater than or equal to 5OO mg/dL Cholesterol 147 <200 mg/dL [facility] Comment:Desirable Cholestero l: less than 200 mg/dLBorderline High Cholesterol: 200-239 mg/dLHigh Cholesterol: greater than 239 mg/dL LDL Cholesterol Calculated 88 <100 mg/dL [facility] Comment:Desirable LDL: less than 100 mg/dLNear Optimal/Above Optimal LDL: 110- 129 mg/dLBorderline High LDL: 130-159 mg/dLHigh LDL: 160-189 mg/dLVery High LDL: greater than or equal to 190 mg/dL HDL Cholesterol 35(L) >40 mg/dL [facility] Comment:Desirable HDL: great er than 40 mg/dL Note: This HDL assay may give artificially low results in patients with liver disease. Blood Venous blood specimen / Unknown 04/20/2025 11:35 AM EDT 04/20/2025 1:32 PM EDT [facility] LAB BLOOD ORDERABLES Final Resul t [facility] [address] [place] [address] [phone] * (ABNORMAL) Bacterial Vaginosis (04/07/2025 2:40 PM EDT) TRICHOMONAS VAGINALIS DETECTION BY PCR NOT DETECTED Not Detect [facility] BACTERIAL VAGINOSIS DETECTION BY PCR POSITIVE(A) Negative [facility] Comment:The BV organism targ ets [...] DETECTION BY PCR NOT DETECTED Not Detect [facility] Brie glab krusei PCR NOT DETECTED Not Detect [facility] 04/07/2025 2:40 PM EDT 04/07/2025 6:23 PM EDT [facility] LAB MICROBIOLOGY - GENERAL ORDER BETH Final Result [facility] [address] [place] [phone] * Chlamydia/N. Gonorrhoeae RNA, TMA, Vagina (04/07/2025 2:40 PM EDT) CT PCR NOT DETECTED Not Detect. [facility] Comment:A not detected test result [...] psychologicalconsequences. NG PCR NOT DETECTED Not Detect. [facility] Comment:A not detected test result [...] EDT 04/07/2025 6:23 PM EDT us Anny LAMBERT LAB MICROBIOLOGY - GENERAL ORDER BETH Final Result Performing Organization Address [facility] Co de Phone Number [facility] [address] [place] [address] [phone] * HEPATITIS C AB W/REFL TO HCV RNA, QN, PCR (10/27/2021 10:10 AM EDT) HEPATITIS C ANTIBODY NON-REACT CAM NON-REACT CAM [facility] INDEX 0.03 <1.00 [facility] Comment: HCV antibody was non-reactive. There is no laboratory evidence of HCV infection. In most cases, no further action is required. However, if recent HCV exposure is suspected, a test for HCV RNA (test code 75724) is suggested. For additional information please refer to http://education.Hochy eto.Parenthoods/faq/LBP91s7 (This link is being provided for informational/ educational purposes only.) 10/27/2021 10:1 0 AM EDT us Anny Prado ANP HISTORICAL/NON ORDERABLE LABS Fi nal Result Performing Organization Address [facility] Co de Phone Number [facility] [address] * THINPREP PAP (07/20/2020 11:59 AM EST) [...] along with historic and current clinical information. Family Nurse : SEE COMMENT [facility] Comment: GSG, CT(ASCP) CT screening location: [place] [address] Interpretation/R esult: Negative for intraepithelial lesion or malignancy. [facility] LMP: NONE [facility] Prev. BX: NONE [facility] Prev. PAP: NONE [facility]IV[facility] SOURCE: CERVICAL [facility] Statement Of Adequacy: [facility] Comment: Satisfactory for evaluation. Endocervical/transformation zone component present. 07/20/2020 11:5 9 AM EST Joanne HEBERT LAB PATHOLOGY ORDERABLES Final Result [facility] [address] from Last 3 Months or Most Recently Relevant to Health Maintenance Insurance [employer] < [address] [id number] Care Teams Cement Loader Relationship Specialty Start Date End Date Anny Prado ANP [address] [place] [phone] PCP - General Family Medicine 06/03/20
--- OUTSIDE RECORDS SUMMARY | 2025-05-07 19:56 | XMS_ITS | Clinical Summary ---
Author Organization [facility] Address [address] [place] [phone] Phone Care Team Providers Care Multiple Effect Evaporator Operator Name Role Phone Physician, Pcp Unknown Primary Care Provider Michelle vailable Allergies No known active allergies Medications No known medications Active Problems Comments Yes No known active problems Surgical History Surgery Date Site/Laterality Comments EYE SURGERY Medical History Medical History Date Comments Seizures ([facility] V24, [facility] V28) Anemia Social History Tobacco Use Types [...] on patient's age to complete this topic Insurance MEDICARE Member Subscriber Plan / Payer (Ef fective 2017-Present) Name:ARMIDA BUSH Relation to Subscriber:Self Name:Jessica Meza Payer ID:[id number] Group ID:[id number] Type:Not on file Address: [facility] [address] [phone] Care Teams Multiple Effect Evaporator Operator Relationship Specialty Start Date End Date Physician, Pcp Unknown PCP - General 06/04/24
--- OUTSIDE RECORDS SUMMARY | 2025-05-07 19:56 | XMS_ITS | Encounter Summary ---
Author Organization [employer] Address [address] [facility] 7t [place] [address] Care Team Providers Care Fiscal Specialist Name Role Phone Anny Prado Primary Care Provider [phone] Encounter Details Date Type Department Care Team (Latest Contact Info) Description 05/07/2025 Travel Social History Tobacco Use Types Packs/Day [...] with others, in a hotel, in a correction, living outside on the street, on a [...] Q2 Not on file 04/07/2025 Comments No Sex and Gender Information Value Date Recorded [...] documented as of this encounter Care Teams Fiscal Specialist Relationship Specialty Start Date End Date Anny Prado ANP [address] [place] [address] PCP - General Family Medicine 06/03/20 documented as of this encounter
--- OUTSIDE RECORDS SUMMARY | 2025-05-07 19:56 | XMS_ITS | Encounter Summary ---
Author Organization [employer] Address [address] [facility] 7t [place] [address] Care Team Providers Care Supervisor Front Name Role Phone Anny Prado Primary Care Provider [phone] Reason for Visit * Reason Onset Date Comments Nurse Triage 03/11/2024 Encounter Details Date Type Department Care Team (Late st Contact Info) Description 03/11/2024 Telephone [facility] [address] [place], [place] [phone] Anny Prado ANP [address] [place] [address] Nurse Triage Social History Tobacco Use Types [...] documented in this encounter Plan of Treatment Not on file documented as of this encounter Visit Diagnoses Not on filedocumented in this encounter Additional Health Concerns Assessment Noted Time PHQ-9 Depression Total Score: 18 023 11:43 AM EDT documented as of this encounter Care Teams Supervisor Front Relationship Specialty Start Date End Date Anny Prado ANP [address] [place] [address] PCP - General Family Medicine 06/03/20 documented as of this encounter
--- OUTSIDE RECORDS SUMMARY | 2025-05-07 19:56 | XMS_ITS | Encounter Summary ---
Author Organization [employer] Address [address] [facility] 7t [place] [address] Care Team Providers Care Counter Sales Representative Name Role Phone Anny Prado Primary Care Provider [phone] Encounter Details Date Type Department Care Team ([facility] st Contact Info) Description 04/08/2025 Results Follow-Up [facility]INE [address] [place] [address] Anny Prado ANP [address] [place] [address] Chlamydia/N. Gonorrhoeae RNA, TMA, Vagina, TSH W/Reflex to FT4, HIV-1/2 Antigen and Antibodies, Fourth Generation, with Reflexes Social History Tobacco Use Types Packs/Day Years [...] with others, in a hotel, in a snf, living outside on the street, on a [...] documented as of this encounter Care Teams Counter Sales Representative Relationship Specialty Start Date End Date Anny Prado ANP [address] [place] [phone] PCP - General Family Medicine 06/03/20 documented as of this encounter
--- OUTSIDE RECORDS SUMMARY | 2025-05-07 19:56 | XMS_ITS | Encounter Summary ---
Author Organization [employer] Address [address] [facility] [address] [place] [address] Care Team Providers Care Fiber Picker Name Role Phone Anny Prado Primary Care Provider [phone] Reason for Visit * Reason Onset Date Comments chart prep 05/06/2025 Encounter Details Date Type Department Care Team (Late st Contact Info) Description 05/06/2025 Telephone [facility] MEDICINE [address] [place], [place] [phone] Joanne Michele CN [address] [place] [address] chart prep Social History Tobacco Use Types [...] with others, in a hotel, in a nursing home, living outside on the street, on a [...] encounter Miscellaneous Notes * Telephone Encounter - Serina Albrecht MA - 05/06/2025 3:26 PM EDT Chart Prep Labs: not applicable Images: not applicable Screenings: Not Applicable Vaccines due: Covid Due and Flu Due Referrals: Not Applicable Overdue care gaps: None documented in this encounter Plan of Treatment Not on file documented as of this encounter Visit Diagnoses Not on filedocumented in this encounter Additional Health Concerns Assessment Noted Time PHQ-9 Depression Total Score: 17 025 1:23 PM EDT documented as of this encounter Care Teams Fiber Picker Relationship Specialty Start Date End Date Anny Prado ANP [address] [place] [id number] PCP - General Family Medicine 06/03/20 documented as of this encounter
--- OUTSIDE RECORDS SUMMARY | 2025-05-07 19:56 | XMS_ITS | Encounter Summary ---
Author Organization [employer] Address [address] [facility] [address] [place] [address] Care Team Providers Care Delivery Motorcycle Driver Name Role Phone Anny Prado Primary Care Provider [phone] Reason for Visit * Reason Onset Date Comments Referral 03/20/2025 Encounter Details Date Type Department Care Team (Late st Contact Info) Description 03/20/2025 Telephone [facility] MEDICINE [address] [place], [place] [phone] Anny Prado ANP [address] [place] [address] Referral Social History Tobacco Use Types Packs/Day [...] Tc from pt requesting a referral to [facility] for a therapist Contact pt at [phone] documented in this encounter Plan of Treatment Not on file documented as of this encounter Visit Diagnoses Not on filedocumented in this encounter Additional Health Concerns Assessment Noted Time PHQ-9 Depression Total Score: 16 024 2:13 PM EST documented as of this encounter Care Teams Delivery Motorcycle Driver Relationship Specialty Start Date End Date Anny Prado ANP [address] [place] [id number] PCP - General Family Medicine 06/03/20 documented as of this encounter
[2025-05-12 22:38] LABS: C. trachomatis RNA TMA NOT DETECTED (NOT DETECTED); N. gonorrhoeae RNA TMA NOT DETECTED (NOT DETECTED); Trichomonas (NAAT) NOT DETECTED (NOT DETECTED)
== END 2025-05-07 18:49 | disposition home or self-care (01) ==
LOC: HO.LNP 18:48
PROVIDERS: Visit Provider Advanced Practice Midwife
DX: Z12.4 Encounter for screening for malignant neoplasm of cervix (principal); Z20.2 Contact with and (suspected) exposure to infections with a predominantly sexual mode of transmission
CPT/HCPCS: 87491; 87591; 87626; 87661; 88175